=== PATIENT | male | born 1950 | race Caucasian/White ===

== ENCOUNTER 2024-08-14 09:20 | Outpatient (AMB) | payer MEDICARE, SELFPAY ==
--- NOTE | 2024-08-14 09:23 | MHC.OFFVIS ---
Vital Signs 08/14/24 09:25 Height 5 ft 10 in Weight 185 lb BMI 26.5 BP 118/72 Blood Pressure Location Rt brachial Pulse 63 Pulse Source Pulse Oximeter Pulse Oximetry (%) 98 Oxygen Delivery Method Room Air Intake Visit Reasons: ENP-Polyneuropathy Intake Note: patient referred by [facility] for polyneuropathy Allergies shellfish derived (SHELLFISH DERIVED) Allergy (Unknown, Unverified 08/14/24 09:28) DIFF BREATHING Medication List - Last Reconciled 08/14/24 by Jennifer Marques MD lisinopril 10 mg PO DAILY omeprazole 20 mg PO QAM sertraline mg PO DAILY HPI Comments Details: 73y/o male comes for neurological evaluation. In Feb 2024 he had muscle twitches , spasms , mild numbness , jabbing pain intermittently in his UE and LE- for 2 mths - was on cephlexin at that time. He was seen at [facility] - Neuromuscular clinic - EMG showed mild axonal neuropathy and carpal tunnel( mild) .He was asked to stop cephlexin and his symptoms resolved. He alos recieved some steroid injections to his wrist which helpe dhis carpal tunnel. He was referred at that time but he says he is feeling good He also has sleep apnea on CPAP - 7-18 cm used 87/90 days & hrs median daily usage AHI 2.1 Leak- 5L and wants to follow up here. [facility] Medical History (Updated 08/14/24 @ 10:03 by Jennifer Marques MD) Obstructive sleep apnea Rectal cancer Sleep apnea History of paresthesia Polyneuropathy HTN (hypertension) Chronic knee pain Anxiety Surgical History History of rectal surgery Family History Father HTN (hypertension) Social History Alcohol intake: never Patient Tobacco Use Status: Never used Tobacco Physical Exam Vital Signs: Last Vital Signs Pulse 63 08/14/24 09:25 BP 118/72 08/14/24 09:25 Pulse Ox 98 08/14/24 09:25 Oxygen Delivery Method Room Air 08/14/24 09:25 BMI result Body Mass Index 26.5 Const General: cooperative, healthy appearing and comfortable Nutritional Appearance: average body habitus Orientation/consciousness: patient oriented x3 Eyes Pupils: Equal, round and reactive pupils present Neuro General: patient oriented x3, gait normal, tone normal, moves all extremities and no focal motor deficits Cranial nerves: Yes Equal, round and reactive pupils present, Yes Bilaterally intact EOM present, Yes Nystagmus not present, Yes Normal facial strength present, Yes Midline tongue present, Yes Ability to bilaterally rotate head present and Yes Ability to bilaterally elevate shoulders present Cognition (Neuro): normal cognition Gait exam (Neuro): Normal gait present Motor exam (neuro): 5/5 motor strength present throughout and Normal motor muscle tone present throughout Deep tendon reflexes (DTR's): Right triceps reflex intensity grade: 1+, Left triceps reflex intensity grade: 1+, Rt Biceps (C5, C6): 1+, Left biceps reflex intensity grade: 1+, Right brachioradialis reflex intensity grade: 1+, Left brachioradialis reflex intensity grade: 1+, Right patellar reflex intensity grade: 1+, Left patellar reflex intensity grade: 1+, Right ankle reflex intensity grade: 0 and Left ankle reflex intensity grade: 0 Assessment & Plan Assessment & Plan (1) Obstructive sleep apnea: Comment: On CPAP - wants to try INSPIRE- travels a lot and unable to take his CPAP with him Code(s): G47.33 - Obstructive sleep apnea (adult) (pediatric) Category: Medical (2) Polyneuropathy: Comment: reviewed EMG - had labs to r/o reversible causes Code(s): G62.9 - Polyneuropathy, unspecified Category: Medical Plan Home sleep test for reevaluation and to determine if he is a candidate for INSPIRE Monitor neuropathy Orders: Orders RT home sleep study Today G47.30 - Sleep apnea, unspecified Coding Level of Care Code New Pt Level 4 (13260) Diagnoses Obstructive sleep apnea G47.33 Polyneuropathy G62.9
[2024-08-14 09:25] VITALS: BP 118/72; PULSE 63; O2SAT 98; BMI 26.5
--- OUTSIDE RECORDS SUMMARY | 2024-08-14 10:16 | XMS_ITS | Referral Summary ---
Author Organization [facility] Address [address] [place] [address] Care Team Providers Care Gambreler Name Role Phone Renetta Joshi Primary Care Provider [phone] Encounters Date Type Department Care Team Description 06/11/2024 myChart Message [facility] [address] [place] [address] [id number] Kandis Nino MD EMG from Last 3 Months Allergies Active Allergy Reactions Criticality Noted Date Comments Iodinated Contrast Media Rash Low 01/03/2011 UNSPECIFIED Contrast Media - [facility]HS Allergy Remediation Shellfish Containing Products Unknown,Swelling High 07/17/2015 Shellfish Allergy Itchy throat Medications ascorbic acid, vitamin C, (VITAMIN C) 1,000 mg tablet Take 1,000 mg by mouth. Active atenoloL (TENORMIN) 50 mg tablet Take 50 mg by mouth daily. 12/12/2023 Active cholecalciferol (VITAMIN D3) 1,000 unit tablet Take 1,000 Units by mouth daily. Active azithromycin (ZITHROMAX) 250 mg tablet TAKE 2 TABLETS BY MOUTH TODAY, THEN TAKE 1 TABLET DAILY FOR 4 DAYS DIRECTED 05/24/2023 Active ciprofloxacin (CIPRO) 500 mg tablet SMARTSI Tablet(s) By Mouth Twice Daily 01/18/2024 Active lisinopriL (PRINIVIL,ZESTR IL) 20 mg tablet Take 20 mg by mouth daily. 02/28/2024 Active finasteride (PROSCAR) 5 mg tablet SMARTSI Tablet(s) By Mouth Daily 04/15/2024 Active omeprazole (PriLOSEC) 20 mg capsule Take 20 mg by mouth daily. 01/05/2024 Active vitamin B complex capsule Take 1 capsule by mouth once a day. Active sertraline (ZOLOFT) 50 mg tablet Take 50 mg by mouth daily. 03/04/2024 Active Active Problems No known active problems Social History Tobacco Use Types Packs/Day Years Used Date Smoking Tobacco: Never Smokeless Tobacco: Never Tobacco Cessation:Counseling Given: Not Answered Alcohol Use Standard Drinks/Week Comments Not Currently 0 (1 standard drink = 0.6 oz pur e alcohol) Sex and Gender Information Value Date Recorded Sex Assigned at Male 04/10/2024 2:47 PM EST Legal Sex Male 2:47 PM EST Gender Identity Male 04/10/2024 2:47 PM EST Sexual Orientation Straight 04/18/2024 10 :01 AM EST Last Filed Vital Signs Vital Sign Reading Time Taken Comments Blood Pressure 129/69 04/25/2024 1:32 PM EST Pulse 55 04/25/2024 1:32 PM EST Temperature 36.6 C (97.9 F) 04/25/2024 1:17 PM EST Respiratory Rate 18 04/25/2024 1:17 PM EST Oxygen Saturation 99% 04/25/2024 1:17 PM EST Inhaled Oxygen Concentration - - Weight 84.8 kg (187 lb) 04/25/2024 1:17 PM EST Height 177.8 cm (5' 10 ) 04/25/2024 1:17 PM EST Body Mass Index 26.83 04/25/2024 1:17 PM EST Plan of Treatment Upcoming Encounters Date Type Department Care Team (Late st Contact Info) Description 10/10/2024 1:00 PM EDT Office Visit [facility] [address] [place] [id number] Kandis Nino MD [address] [place] [address] [place] [address] Insurance [facility] SUPP MEDICARE Care Teams Gambreler Relationship Specialty Start Date End Date Renetta Joshi [address] [place] [address] PCP - General Internal Medicine 04/17/24
== END 2024-08-14 09:56 | disposition home or self-care (01) ==
LOC: HO.HSMS 09:21
PROVIDERS: PCP Internal Medicine; Visit Provider Psychiatry & Neurology Neurology
DX: G47.33 Obstructive sleep apnea (adult) (pediatric) (principal); G62.9 Polyneuropathy, unspecified
CPT/HCPCS: 99204

== ENCOUNTER → 2024-08-14 09:20 | Outpatient (BNVA) | payer MEDICARE, SELFPAY | PROVIDERS: PCP Internal Medicine; Visit Provider Psychiatry & Neurology Neurology | DX: G47.33 Obstructive sleep apnea (adult) (pediatric) (principal); G62.9 Polyneuropathy, unspecified | CPT/HCPCS: 99202 ==

== ENCOUNTER → 2024-10-29 08:53 | Outpatient (REF) | payer MEDICARE, SELFPAY ==
--- OUTSIDE RECORDS SUMMARY | 2024-10-25 09:10 | XMS_ITS | Encounter Summary ---
Author Organization [facility] Address [address] [place] [address] Care Team Providers Care Machinery Cleaner Name Role Phone Renetta Joshi Primary Care Provider [phone] Reason for Visit * Reason Comments Follow-up Encounter Details Date Type Department Care Team ([facility] st Contact Info) Description 10/25/2024 9:10 AM EDT Office Visit Gastroenterology - [address] [place] [address] Zuleima Lawson PA [address] [place] [address] Bloating (Primary Dx); Flatulence; Chronic idiopathic constipation Social History Tobacco Use Types Packs/Day Years Used Date Smoking Tobacco: Never Smokeless Tobacco: Never Alcohol Use Standard Drinks/Week Comments Yes 0 (1 standard drink = 0.6 oz pur e alcohol) rare Housing Instability Answer Date Recorde d Are you worried that in the next 2 months you may not have stable housing? No 04/16/2024 Food Access & Nutrition Answer Date Rec orded Do you have access to a vari ety of food including fruits and vegetables? Yes 04/16/2024 Access to Healthcare Answer Date Record ed Within the last 3 months, ruben brigth many times did you visit the emergency department for your medical care? 0 04/16/2024 Health Literacy Answer Date Recorded How often do you need to hav e someone help you when you read instructions, pamphlets, or other written material from your doctor or pharmacy? Never 04/16/2024 Caregiver: How often do you need to have someone help you when you read instructions, pamphlets, or other written material from your doctor or pharmacy? Not on file 04/16/2024 Financial Risk Answer Date Recorded How hard is it for you to pa y for the very basics like food, housing, medical care, and air conditioning / heating? Not very hard 04/16/2024 Transportation Answer Date Recorded Has the lack of transportati on kept you from meetings, work, or from getting things needed for daily living? No Has the lack of transportati on kept you from medical appointments or from getting medications? No 04/16/2024 Social Isolation Answer Date Recorded How often do you feel lonely or isolated from th ose around you? Rarely 04/16/2024 Food Risk Answer Date Recorded Within the past 12 months we worried whether our food would run out before we got money to buy more. Never true 04/16/2024 Within the past 12 months th e food we bought just didn't last and we didn't have money to get more. Never true 04/16/2024 Dependent Care Answer Date Recorded Do you need help finding or paying for care for your loved ones. For example, director child or elderly care for an older adult? No 04/16/2024 Education Answer Date Recorded Do you think completing more education or training, like finishing a GED, going to college, or learning a trade, would be helpful for you? No 04/16/2024 Employment and Income Answer Date Recor ded During the last four weeks, have you been actively looking for work? No 04/16/2024 Living Situation Answer Date Recorded What is your living situation? 0 04/16/2024 Sex and Gender Information Value Date Recorded Sex Assigned at Male 03/26/2024 1:49 PM EST Legal Sex Male 2:03 PM EST Gender Identity Male 03/26/2024 1:49 PM EST Sexual Orientation Not on file documented as of this encounter Last Filed Vital Signs Vital Sign Reading Time Taken Comments Blood Pressure - - Pulse - - Temperature - - Respiratory Rate - - Oxygen Saturation - - Inhaled Oxygen Concentration - - Weight 84.4 kg (186 lb) 10/25/2024 9:11 AM EDT Height 177.8 cm (5' 10 ) 10/25/2024 9:11 AM EDT Body Mass Index 26.69 10/25/2024 9:11 AM EDT documented in this encounter Progress Notes * HUANG Foley - 10/25/2024 9:10 AM EDT Subjective Last Colononscopy/EGD: Colon 02/2020 -scar in distal rectum at site of previous transanal fistula closure. Small opening inthe scar. Evidence of prior end-to-side colorectal anastomosis and rectosigmoid colon characterizedby healthy-appearing mucosa. At [facility] (pt called today to arrange next colonoscopy) HPI: Jesse Israel is a 74 y.o. old male who was originally referred to us by Judy Acuña presents to the gastroenterology department today for a follow up of abdominal bloating, constipation and gas. He is actually doing better in general. He is using the simethicone. He did not end up trying the milk of magnesia. He tends to eat prunes regularly. His only complaint today was straining to go to the bathroom. His stool is not hard although he is feels as if he has to strain at times to evacuate. His stool tends to be quite long. He denied alarm symptoms still. He has a cystoscopy planned with the urologist for the ongoing urological symptoms. We reviewed the unremarkable lab work that was ordered after his last appointment. He just placed a call to his field return repairer at [facility] to arrange his next colonoscopy. LABS/IMAGING: Component Ref Range & Units 2 mo ago Vitamin B-12 250 - 900 pcg/mL 587 Folate 2.8 - 17.0 ng/ml >20.0 High Component Ref Range & Units 2 mo ago Tissue Transglutaminase Ab, IgA Quant <4 unit/mL 1 Tissue Transglutaminase Ab, IgA Negative Negative Component Ref Range & Units 2 mo ago Endomysial IgA Negative Negative Resulting Agency SP 1 Result Note 1 Follow-up Encounter Component Ref Range & Units 2 mo ago 6 mo ago IgA 61 - 348 mg/dL 235 234 R Resulting Agency [facility] Review of Systems Constitutional: Negative. Respiratory: Negative. Cardiovascular: Negative. Gastrointestinal: Negative. Difficult time evacuating stool (soft stool) Genitourinary: Negative. 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 Developed fistula. Multiple surgeries/recto-sig colon resection as a result per patient. COLONOSCOPY 02/2020 scar in distal rectum at site of previous transanal fistula closure. Small opening in the scar. Evidence of prior end-to-side colorectal anastomosis and rectosigmoid colon characterized by healthy-appearing mucosa. At [facility] SOCIAL HISTORY: Social History Tobacco Use Smoking status: Never Smokeless tobacco: Never Substance Use Topics Alcohol use: Yes Comment: rare FAMILY HISTORY: No family history on file. ACTIVE MEDICATIONS: Current Outpatient Medications Medication Sig Dispense Refill atenoloL (TENORMIN) 50 mg tablet cholecalciferol (VITAMIN D-3) 25 mcg (1,000 unit) tablet Take 1 tablet (1,000 Units total) by mouthdaily. finasteride (PROSCAR) 5 mg tablet lisinopriL (PRINIVIL,ZESTRIL) 10 mg tablet omeprazole (PriLOSEC) [address] capsule Take 1 capsule (20 mg total) by mouth daily. tadalafiL (CIALIS) 5 mg tablet Take 1 tablet (5 mg total) by mouth 1 (one) time each day. levoFLOXacin (LEVAQUIN) 500 mg tablet Take 1 tablet (500 mg total) by mouth 1 (one) time each day. (Patient not taking: Reported on 10/25/2024) sertraline (ZOLOFT) 50 mg tablet Take 1 tablet (50 mg total) by mouth 1 (one) time each day. zolpidem (AMBIEN) 5 mg tablet No current facility-administered medications for this visit. ALLERGIES: Allergies Allergen Reactions Shellfish Derived Shellfish Allergy Wt Readings from Last 1 Encounters: 10/25/24 0911 84.4 kg (186 lb) Physical Exam Constitutional: Appearance: Normal appearance. HENT: Head: Normocephalic. Skin: General: Skin is warm. Neurological: Mental Status: He is alert and oriented to person, place, and time. Psychiatric: Mood and Affect: Mood normal. Behavior: Behavior normal. IMPRESSION: No diagnosis found. Assessment/Plan Assessment & Plan Bloating Improved Continue simethicone Flatulence Improved Continue simethicone Chronic idiopathic constipation His main issue is evacuation. Stool tends to be soft and long. Suggested that he restart Metamucil 2 capsules daily Also suggested either 1 tablespoon of milk of magnesia at night or MiraLAX a couple of times a week F/u prn HUANG Foley 9:14 AM EDT documented in this encounter Plan of Treatment Not on file documented as of this encounter Visit Diagnoses Diagnosis Bloating- Primary Flatulence, eructation, and gas pain Flatulence Flatulence, eructation, and gas pain Chronic idiopathic constipation Unspecified constipation documented in this encounter Historical Medications * This list may reflect changes made after this encounter. tadalafiL (CIALIS) 5 mg tablet Take 1 tablet (5 mg total) by mouth 1 (one) time each day. 09/17/2024 added in this encounter Additional Health Concerns Assessment Noted Time PHQ-9 Depression Total Score: 1 04/16/19 25 8:06 AM EST documented as of this encounter Care Teams Machinery Cleaner Relationship Specialty Start Date End Date Renetta Joshi PA [address] [place] [address] PCP - General Physician Brick Tester 07/17/24 documented as of this encounter
--- OUTSIDE RECORDS SUMMARY | 2024-10-29 09:41 | XMS_ITS | Clinical Summary ---
Author Organization [address] [facility] Address [address] [place] [address] Phone Care Team Providers Care Air Brake Man Name Role Phone Renetta Joshi Primary Care Provider [phone] Allergies Active Allergy Reactions Criticality Noted Date Comments Shellfish Derived 07/05/2016 Shellfish Allergy Medications atenoloL (TENORMIN) 50 mg tablet 05/27/2015 Active cholecalciferol (VITAMIN D-3) 25 mcg (1,000 unit) tablet Take 1 tablet (1,000 Units total) by mouth daily. Active finasteride (PROSCAR) 5 mg tablet 03/23/2023 Active lisinopriL (PRINIVIL,ZESTR IL) 10 mg tablet Active omeprazole (PriLOSEC) [address] capsule Take 1 capsule (20 mg total) by mouth daily. 06/26/2015 Active sertraline (ZOLOFT) 50 mg tablet Take 1 tablet (50 mg total) by mouth 1 (one) time each day. Active zolpidem (AMBIEN) 5 mg tablet 03/20/2024 Active levoFLOXacin (LEVAQUIN) 500 mg tablet Take 1 tablet (500 mg total) by mouth 1 (one) time each day. 08/04/2024 Active tadalafiL (CIALIS) 5 mg tablet Take 1 tablet (5 mg total) by mouth 1 (one) time each day. 09/17/2024 Active Active Problems Problem Noted Date Diagnosed Date HTN (hypertension) 08/15/2024 BPH (benign prostatic hyperplasia) 08/15/2024 GABY (obstructive sleep apnea) 08/15/2024 Somatic dysfunction of pelvic region 02/02/2017 Sprain of sacroiliac ligament 02/02/2017 Strain of hip 02/02/2017 Encounters Date Type Department Care Team Description 10/25/2024 9:10 AM EDT Office Visit Gastroenterology - [address] [place] [phone] Zuleima Lawson PA Bloating (Primary Dx); Flatulence; Chronic idiopathic constipation 08/22/2024 Telephone Gastroenterology - [address] [place] [phone] Lisa Vides [place] 08/15/2024 8:50 AM EDT Consult Gastroenterology - [address] [place] [phone] Zuleima Lawson PA Bloating (Primary Dx); Flatulence; Chronic idiopathic constipation 08/05/2024 Lab Requisition [facility] - Main Lab [address] [facility] [place] [phone] Jean Matthews MD Urinary tract infection, site not specified from Last 3 Months Surgical History Surgery Date Site/Laterality Comments COLONOSCOPY 02/28/2020 - 03/29/2020 scar in distal rectum at site of previous transanal fistula closure. Small opening in the scar. Evidence of prior end-to-side colorectal anastomosis and rectosigmoid colon characterized by healthy-appearing mucosa. At [facility] COLON SURGERY History of rectal carcinoid resected. Developed fistula. Multiple surgeries/recto-sig colon resection as a result per patient. 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 For example, early childhood teacher or elderly care for an older adult? [...] PM EST Sexual Orientation Not on file Obstetrics History Last Filed Vital Signs Vital Sign Reading Time Taken Comments Blood Pressure 167/82 03/29/2024 12:17 PM EST Pulse 82 03/29/2024 12:17 PM EST Temperature 36.2 C (97.1 F) 03/29/2024 12:17 PM EST Respiratory Rate - - Oxygen Saturation 98% 03/29/2024 12:17 PM EST Inhaled Oxygen Concentration - - Weight 84.4 kg (186 lb) 10/25/2024 9:11 AM EDT Height 177.8 cm (5' 10 ) 10/25/2024 9:11 AM EDT Body Mass Index 26.69 10/25/2024 9:11 AM EDT Plan of Treatment Health Maintenance Due Date Last Done Comments RSV Immunization Adult Patients (1 - Risk 60-74 years 1-dose series) 2012 Zoster Vaccines (3 of 3) 11/08/2016 017, 06/23/2016, 07/24/2014 Pneumococcal Vaccine: 50+ Years (3 of 3 - PCV20 or PCV21) 10/06/2023 10/05/2018, 10/02/2017 COVID-19 Vaccine (4 - 2023-2 5 season) 2023 02/18/2021, 06/09/2020, 05/19/2020 Cholesterol Screening (Lipid Panel) 03/25/2024 Falls Risk Assessment 03/25/2024 Hepatitis C Screening 03/25/2024 Medicare Annual Wellness Visit 03/25/2024 Hypertension/CHF/CAD Annual BMP Blood Test 03/29/2024 03/09/2023 Influenza Vaccine (#1) 2024 , 02/02/2023, 12/23/2011 Social Influencers of Health Screening 04/16/2025 04/16/2024 DTaP,Tdap,and Td Vaccines (2 - Td or Tdap) 09/13/2026 09/13/2016 Colorectal Cancer Screening: Colonoscopy 09/02/2034 09/02/2024 Hepatitis A Vaccines Aged Out 02/15/2017, 07/20/2016 No longer eligible based on patient's age to complete this topic Depression Screening Completed 04/16/2024 HIB Vaccines Aged Out No longer eligi ble based on patient's age to complete this topic HPV Vaccines Aged Out No longer eligi ble based on patient's age to complete this topic Hepatitis B Vaccines Aged Out No long er eligible based on patient's age to complete this topic IPV Vaccines Aged Out No longer eligi ble based on patient's age to complete this topic MMR Vaccines Aged Out No longer eligi ble based on patient's age to complete this topic Meningococcal ACWY Vaccine Aged Out N o longer eligible based on patient's age to complete this topic Meningococcal B Vaccine Aged Out No l onger eligible based on patient's age to complete this topic RSV Immunization Patients Under 20 months Aged Out No longer eligible b ased on patient's age to complete this topic Varicella Vaccines Aged Out No longer eligible based on patient's age to complete this topic Procedures Procedure Name Priority Date/Time Associated Diagnosis Comments COLONOSCOPY Routine 09/02/2024 2:50 PM EDT VITAMIN B12 AND FOLATE Routine 9:35 AM EDT Bloating Flatulence IMMUNOGLOBULIN IGA Routine 08/15/2024 9: 35 AM EDT Bloating Flatulence ENDOMYSIAL ANTIBODY, IGA Routine 08/15/2024 9:35 AM EDT Bloating Flatulence TISSUE TRANSGLUTAMINASE, IGA Routine 08/15/2024 9:35 AM EDT Bloating Flatulence CULTURE URINE Routine 08/05/2024 2:45 PM EDT Urinary tract infection, site not specified from Last 3 Months Results * COLONOSCOPY (09/02/2024 2:50 PM EDT) Anatomical Region Laterality Modality Endoscopy us Historical Provider GI~PROCEDURE ORDERABLES F inal Result * (ABNORMAL) Vitamin B12 and folate (08/15/2024 9:35 AM EDT) Vitamin B-12 587 250 - 900 pcg/mL LAB CHEMISTRY METHOD 08/15/2024 11:17 AM EDT [facility] Folate >20.0(H) 2.8 - 17.0 ng/ml LAB CHEMISTRY METHOD 08/15/2024 11:17 AM EDT [facility] Blood Venous blood specimen / Unknown Venipuncture / Unknown 08/15/2024 9:35 AM EDT 08/15/2024 9:53 AM EDT us Zuleima ENCINAS LAB BLOOD ORDERABLES Final R esult [facility] [address] [place] [address], [place] [phone] * Endomysial antibody, IgA (08/15/2024 9:35 AM EDT) Endomysial IgA Negative Negative 08/16/2024 12:30 PM EDT [facility] Blood Venous blood specimen / Unknown Venipuncture / Unknown 08/15/2024 9:35 AM EDT 08/15/2024 9:53 AM EDT us Zuleima ENCINAS LAB BLOOD ORDERABLES Final R esult [facility] [address] [place] [address], [place] [phone] * Tissue transglutaminase, IgA (08/15/2024 9:35 AM EDT) Tissue Transglutaminase Ab, IgA Quant 1 <4 unit/mL LAB CHEMISTRY METHOD 08/21/2024 11:57 AM EDT [facility] Tissue Transglutaminase Ab, IgA Negative Negative LAB CHEMISTRY METHOD 08/21/2024 11:57 AM EDT [facility] Blood Venous blood specimen / Unknown Venipuncture / Unknown 08/15/2024 9:35 AM EDT 08/15/2024 9:53 AM EDT us Zuleima ENCINAS LAB BLOOD ORDERABLES Final R esult Performing Organization Address [facility]/ZIP Co de Phone Number [facility] [address] [place] [address], * Immunoglobulin IgA (08/15/2024 9:35 AM EDT) Pathologist [facility] IgA 235 61 - 348 mg/dL LAB CHEMISTRY METHOD 08/15/2024 10:33 AM EDT [facility] Blood Venous blood specimen / Unknown Venipuncture / Unknown 08/15/2024 9:35 AM EDT 08/15/2024 9:53 AM EDT Zuleima ENCINAS LAB BLOOD ORDERABLES Final R esult Performing Organization Address [facility] Co de Phone Number [facility] [address] [place] [address], * Culture urine (08/05/2024 2:45 PM EDT) [facility] Culture, Urine <10,000 CFU/mL gram negative bacilli, insignificant count, no further workup 08/06/2024 2:18 PM EDT [facility] Urine Urine specimen obtained by clean catch procedure / Unknown 08/05/2024 2:45 PM EDT 08/05/2024 6:01 PM EDT Jean Matthews MD LAB MICROBIOLOGY - GENERA L ORDERABLES Final Result Performing Organization Address [facility]/ZIP Co de Phone Number [facility] [address] [place] [address], from Last 3 Months Insurance MEDICARE [facility] Care Teams Air Brake Man Relationship Specialty Start Date End Date Renetta Joshi PA [address] [place] [address] PCP - General Physician Rag Sorter 07/17/24
--- OUTSIDE RECORDS SUMMARY | 2024-10-29 09:41 | XMS_ITS | Encounter Summary ---
Author Organization [facility] Address [address] [facility] [address] [place] [address] Phone Care Team Providers Care Journeyman Plumber Name Role Phone Stephane May MD Primary Care Provider [phone] Renetta Joshi Primary Care Provider [phone] Encounter Details Date Type Department Care Team (Late st Contact Info) Description 03/18/2020 Procedure Pass [address] [address] Social History Tobacco Use Types Packs/Day Years Used Date Smoking Tobacco: Never Smokeless Tobacco: Never Alcohol Use Standard Drinks/Week Comments Yes 5 (1 standard drink = 0.6 oz pur e alcohol) occasional Sex and Gender Information Value Date Recorded Sex Assigned at Male 04/27/2020 7:52 PM EST Legal Sex Male 7:49 PM EST Gender Identity Male 04/27/2020 7:52 PM EST Sexual Orientation Straight 04/27/2020 7: 52 PM EST documented as of this encounter Plan of Treatment Not on file documented as of this encounter Visit Diagnoses Not on filedocumented in this encounter Care Teams Journeyman Plumber Relationship Specialty Start Date End Date Stephane May MD [address] [facility] [address] [place] [address] PCP - General 07/03/14 03/19/24 Renetta Joshi PA [address] [place] [address] PCP - General Physician Government Professor 03/20/24 documented as of this encounter Additional Source Comments The information contained in this document represents components of the legal health record. It is not the complete legal health record.[facility]
--- OUTSIDE RECORDS SUMMARY | 2024-10-29 09:41 | XMS_ITS | Clinical Summary ---
Author Organization [facility] Address [address] [place] [address] Care Team Providers Care Cloth Desizing Range Operator Chief Name Role Phone Stephane May Primary Care Provider [phone] Allergies No known active allergies Medications Omeprazole 20 MG CAPSULE DELAYED RELEASE 1 CAPSULE DAILY Active Atenolol 25 MG Tab 1 TABLET DAILY Active Active Problems No known active problems Social History Tobacco Use Types Packs/Day Years Used Date Smoking Tobacco: Never Sex and Gender Information Value Date Recorded Sex Assigned at Not on file Legal Sex Male 9:18 AM EDT Gender Identity Not on file Sexual Orientation Not on file Last Filed Vital Signs Vital Sign Reading Time Taken Comments Blood Pressure - - Pulse - - Temperature - - Respiratory Rate - - Oxygen Saturation - - Inhaled Oxygen Concentration - - Weight 82.6 kg (182 lb) 12/26/2012 8:45 AM EDT Height 177.8 cm (5' 10 ) 12/26/2012 8:45 AM EDT Body Mass Index 26.11 12/26/2012 8:45 AM EDT Plan of Treatment Health Maintenance Due Date Last Done Comments Hepatitis C Screening 1950 DTaP/Tdap/Td (1 - Tdap) 1970 Pneumococcal 50+ years (1 of 1 - PCV) 2002 Zoster (Shingrix) (1 of 2) 2002 COVID-19 Vaccine ( - 2023-2 5 season) 2024 Influenza (#1) 2024 RSV (1 - 1-dose 75+ series) 10/08/2027 Abdominal Aorta Imaging Discontinued HPV Vaccine (No Doses Required) Completed Hep A Aged Out No longer eligi ble based on patient's age to complete this topic Hep B Aged Out No longer eligi ble based on patient's age to complete this topic Hib Aged Out No longer eligi ble based on patient's age to complete this topic Meningococcal ACWY Aged Out No longer eligible based on patient's age to complete this topic Zoster (Zostavax) Discontinued Insurance [facility] FEE FOR SERVICE HMO Care Teams Cloth Desizing Range Operator Chief Relationship Specialty Start Date End Date Stephane May [address] [facility] [address] [place] [address] PCP - General Internal Medicine 12/17/12
--- OUTSIDE RECORDS SUMMARY | 2024-10-29 09:41 | XMS_ITS | Encounter Summary ---
Author Organization [facility] Address [address] [place] [address] Care Team Providers Care Spike Machine Operator Name Role Phone Renetta Joshi Primary Care Provider [phone] Encounter Details Date Type Department Care Team (Late st Contact Info) Description 08/05/2024 Lab Requisition [facility] - Main Lab [address] [facility] [place] [address] Jean Matthews MD [address] [facility] [address] [place] [phone] Urinary tract infection, site not specified Social History Tobacco Use Types Packs/Day Years Used Date Smoking Tobacco: Never Assessed Housing Instability Answer Date Recorde d Are [...] care for your loved ones. For example, child and adolescent psychiatrist or elderly care for an older adult? [...] on file documented as of this encounter Plan of Treatment Not on file documented as of this encounter Procedures Procedure Name Priority Date/Time Associated Diagnosis Comments CULTURE URINE Routine 08/05/2024 2:45 PM EDT Urinary tract infection, site not specified documented in this encounter Results * Culture urine (08/05/2024 2:45 PM EDT) Culture, Urine <10,000 CFU/mL gram negative bacilli, insignificant count, no further workup 08/06/2024 2:[address] [facility] Urine Urine specimen obtained by clean catch procedure / Unknown 08/05/2024 2:45 PM EDT 08/05/2024 6:01 PM EDT us Jean Matthews MD LAB MICROBIOLOGY - GENERA L ORDERABLES Final Result [facility] [address] [place] [address], documented in this encounter Visit Diagnoses Diagnosis Urinary tract infection, site not specified documented in this encounter Additional Health Concerns Assessment Noted Time PHQ-9 Depression Total Score: 1 04/16/19 25 8:06 AM EST documented as of this encounter Care Teams Spike Machine Operator Relationship Specialty Start Date End Date Renetta Joshi PA [address] [place] [address] PCP - General Physician Bale Stacker 07/17/24 documented as of this encounter
--- OUTSIDE RECORDS SUMMARY | 2024-10-29 09:41 | XMS_ITS ---
Author Name [facility] Organization Unknown Results Test Name/Text Value Interpretation Date Range Source Interpretation SerPl GUERO-Imp Normal 03/06/2024 [facility] Albumin SerPl Elph-mCnc 4.9 g/dL Above high normal 03/06/19 25 3.8 - 4.8 [facility] Prot Pattern SerPl Elph-Imp Normal 03/06/2024 [facility] Beta2 Glob SerPl Elph-mCnc 0.3 g/dL Normal 03/06/2024 0. 2 - 0.5 [facility] Beta1 Glob SerPl Elph-mCnc 0.5 g/dL Normal 03/06/2024 0. 4 - 0.6 [facility] Prot SerPl-mCnc 7.7 g/dL Normal 03/06/2024 6.1 - 8.[address] [facility] Gamma glob SerPl Elph-mCnc 1.3 g/dL Normal 03/06/2024 0. 8 - 1.7 [facility] Alpha1 Glob SerPl Elph-mCnc 0.2 g/dL Normal 03/06/2024 0.2 - 0.3 [facility] Alpha2 Glob SerPl Elph-mCnc 0.5 g/dL Normal 03/06/2024 0.5 - 0.9 [facility] Folate SerPl-mCnc 23.9 ng/mL Normal 03/06/2024 [facility] Vit B12 SerPl-mCnc 317.0 pg/mL Normal 03/06/2024 200 - 11 00 [facility] History of Medication Use Medication Directions Dispensed Refills Start Date End Date Stat us finasteride (PROSCAR) 5 MG tablet Take 1 tablet (5 mg total) by mouth daily. 03/23/2023 active lisinopril (PRINIVIL,ZeSTRIL) 10 MG tablet Take 1 tablet (10 mg total) by mouth daily. 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 ProblemAct [facility] Paresthesias active 2023-03-09 ProblemAct [facility] Immunizations Vaccine Date Source Lot Number Status Hepatitis A 02/15/2017 [facility] [id number] completed Hepatitis A 07/20/2016 [facility] [id number] completed Typhoid Inactivated 07/20/2016 [facility] [id number] compl eted Yellow Fever 07/20/2016 [facility] [id number] completed Encounters Encounter Type Encounter Reason Primary Diagnosis Location Date Ambulatory Unspecified abdominal pain Unspecified abdominal pain [facility] 07/05/2024 Ambulatory Essential (primary) hypertension Essential (primary) hypertension [facility] 04/01/2024 Ambulatory Anxiety disorder, unspecified Anxiety disorder, unspecified [facility] 03/04/2024 Ambulatory Encounter for general adult medical examination without abnormal findings Encounter for general adult medical examination without abnormal findings [facility] 01/22/2024 Ambulatory Dysuria Dysuria [employer] 11/08/2023 Ambulatory Urinary tract infection, site not specified Urinary tract infection, site not specified [facility] 10/11/2023 Ambulatory Headache, unspecified Headache, unspecified [facility] 06/15/2023 Ambulatory Acute sinusitis, unspecified Acute sinusitis, unspecified [facility] 06/01/2023 Ambulatory Essential (primary) hypertension Essential (primary) hypertension [facility] 03/09/2023 Care Team Organization Name Specialty Phone Email Start Date End Da te [facility] KISHORE Primary Care 03/19/2023 [facility] CHNYA NOVAK Primary Care 03/09/2023 08/03/2024 [facility] ALINE NOVAK Primary Care 03/09/2023 03/09/2023 [facility] NO PCP Primary Care 03/09/2023 03/09/2023
--- OUTSIDE RECORDS SUMMARY | 2024-10-29 09:41 | XMS_ITS | Encounter Summary ---
Author Organization [facility] Address [address] [facility] [address] [place] [address] Phone Care Team Providers Care It Coordinator Name Role Phone Stephane May MD Primary Care Provider [phone] Renetta Joshi Primary Care Provider [phone] Encounter Details Date Type Department Care Team (Late st Contact Info) Description 03/10/2020 Procedure Pass [facility] [address] [place] [address] Social History Tobacco Use Types Packs/Day Years [...] on filedocumented in this encounter Care Teams It Coordinator Relationship Specialty Start Date End Date Stephane May MD [address] [place] [address] PCP - General 07/03/14 03/19/24 Renetta Joshi PA [address] [place] [address] PCP - General Physician Chinchilla Machine Operator 03/20/24 documented as of this encounter Additional Source Comments The information contained in this document represents components of the legal health record. It is not the complete legal health record.[facility]
--- OUTSIDE RECORDS SUMMARY | 2024-10-29 09:41 | XMS_ITS | Clinical Summary ---
Author Organization [facility] Address [address] [address] Phone Care Team Providers Care Metallurgist Process Name Role Phone Renetta Joshi Primary Care Provider [phone] Allergies Active Allergy Reactions Criticality Noted Date Comments Iodinated Contrast Media 01/03/2011 UNSPECIFIED Contrast Media - PHS Allergy Remediation Shellfish Containing Products 04/28/2020 Medications atenolol (TENORMIN) 25 MG tablet Take 25 mg by mouth daily. Active pediatric multivit with iron (-DONIS PLUS IRON) Drop Take by mouth daily with breakfast. Active tamsulosin (FLOMAX) 0.4 mg Cp24 Take 0.4 mg by mouth daily. Active omeprazole (PRILOSEC) 10 MG capsule Take 10 mg by mouth daily. Active finasteride (PROPECIA) 1 mg tablet Take 1 mg by mouth daily. Active multivitamin per tablet Take 1 tablet by mouth. Active ascorbic acid, vitamin C, (VITAMIN C) 1000 MG tablet Take 1,000 mg by mouth. 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 (04/19/2014): Urethral fistula Immunizations Immunization Administration Dates Next Due Influenza, Unspecified Formulation 05/24(Deferred: Other),01/04/2011(Deferred: Other) Pneumococcal polysaccharide PPSV23 06/19(Deferred: Other),05/25/2011(Deferred: Other),01/04/2011(Deferred: Patient Decision),06/10/2009(Deferred: Patient Decision),06/08/2009(Deferred: Other - does not meet criteria) Family History Relation Status Comments Brother 1 Alive Brother 2 Alive Father Mother Social History Tobacco Use Types Packs/Day Years Used Date Smoking Tobacco: Never Smokeless Tobacco: Never Alcohol Use Standard Drinks/Week Comments Yes 5 (1 standard drink = 0.6 oz pur e alcohol) occasional Education Answer Date Recorded Are you interested in more education? Not on jose e 06/23/2022 Are you concerned about learning? Not on file 06/23/2022 No 06/23/2022 No 06/23/2022 Digital Access Answer Date Recorded No 07/25/2022 No 07/25/2022 No 07/25/2022 Reliable internet access at home? Not on file 07/25/2022 Device with a working camera? Not on file Sex and Gender Information Value Date Recorded Sex Assigned at Male 04/27/2020 7:52 PM EST Legal Sex Male 7:49 PM EST Gender Identity Male 04/27/2020 7:52 PM EST Sexual Orientation Straight 04/27/2020 7: 52 PM EST Last Filed Vital Signs Vital Sign Reading Time Taken Comments Blood Pressure 144/70 04/28/2020 3:59 PM EST Pulse 65 04/28/2020 3:59 PM EST Temperature 36.5 C (97.7 F) 03/10/2020 1:15 PM EST Respiratory Rate 16 03/10/2020 2:40 PM EST Oxygen Saturation 97% 04/28/2020 3:59 PM EST Inhaled Oxygen Concentration - - Weight 86.2 kg (190 lb) 04/28/2020 3:59 PM EST Height 177.8 cm (5' 10 ) 04/28/2020 3:59 PM EST Body Mass Index 27.26 04/28/2020 3:59 PM EST Plan of Treatment Health Maintenance Due Date Last Done Comments Adult Td,Tdap Booster 1950 LIPID PANEL 1950 DEPRESSION SCREENING 1964 HEPATITIS C SCREENING 1970 COLOGUARD 1997 FIT TEST 1997 FOBT 1997 VIRTUAL COLONOSCOPY 1997 PNEUMOCOCCAL VACCINES (50+ years) (1 of 1 - PCV) 2002 ZOSTER VACCINES (1 of 2) 2002 SIGMOIDOSCOPY 06/05/2017 06/05/2012 COVID-19 VACCINE (3 - 2023-2 5 season) 2023 06/09/2020, 05/19/2020 INFLUENZA VACCINE (#1) 2024 12/23/2011 RSV VACCINE (1 - 1-dose 75+ series) 10/08/2027 COLONOSCOPY 03/10/2030 03/10/2020, 11/08/2016, 10/25/2011 COLORECTAL CANCER SCREENING 03/10/2030 SMOKING STATUS SCREENING (On ce After 26 Yrs) Completed 04/28/2020 HEPATITIS A VACCINES Aged Out No long er eligible based on patient's age to complete this topic HIB VACCINES Aged Out No longer eligi ble based on patient's age to complete this topic MENINGOCOCCAL VACCINES (ACWY) Aged Out No longer eligible based on patient's age to complete this topic MENINGOCOCCAL VACCINES (B) Aged Out N o longer eligible based on patient's age to complete this topic Medical Devices Not on file Procedures Procedure Name Priority Date/Time Associated Diagnosis Comments ENDOSCOPY, COLON 03/10/2020 1:32 PM EST ENDOSCOPY, SIGMOID 06/05/2012 2: 21 PM EDT from Last 3 Months or Most Recently Relevant to Health Maintenance Results * ENDOSCOPY, COLON (03/10/2020 1:32 PM EST) 03/10/2020 1:32 PM EST Narrative Transcriptions Tereso Phillips MD - 03/10/2020 1:32 PM EST 850 Gastroenterology Patient Name: Jesse Jimenez Procedure Date: 03/10/2020 1:32 PM Date of : 1950 Age: 69 Room: 03 Gender: Male Note Status: Finalized Attending MD: Tereso Phillips MD Procedure: Colonoscopy Indications: Rectourethral fistula? Providers: Tereso Phillips MD, ENOC PENA RN Referring MD: TATE SUTTON M.D. (Referring MD) Medicines: Monitored Anesthesia Care Complications: No immediate complications. Procedure: Pre-Anesthesia Assessment: - All questions were answered and informed consent was obtained. - ASA Grade Assessment: II - A patient with mild systemic disease. - Airway Examination: Mallampati Class II (the uvula but not tonsillar pillars visualized). After informed consent was obtained, the scope was passed under direct vision. Throughout the procedure, the patient's blood pressure, pulse, and oxygen saturations were monitored continuously. The Colonoscope was introduced through the anus and advanced to the cecum, identified by appendiceal orifice and ileocecal valve. The colonoscopy was performed without difficulty. The patient tolerated the procedure well. The quality of the bowel preparation was good. Findings: The digital rectal exam findings include scar at site of previous trans anal fistula closure. A 5 mm polyp was found in the cecum. The polyp was sessile. The polyp was removed with a cold biopsy forceps. Resection and retrieval were complete. A scar was found in the distal rectum. There was a small opening in the scar (fistula?). There was evidence of a prior end-to-side colo-rectal anastomosis in the recto-sigmoid colon. This was patent and was characterized by healthy appearing mucosa. The anastomosis was traversed. The exam was otherwise without abnormality. Impression: - Scar at site of previous trans anal fistula closure found on digital rectal exam. - One 5 mm polyp in the cecum, removed with a cold biopsy forceps. Resected and retrieved. - Scar in the distal rectum. Possible fistula opening? - Patent end-to-side colo-rectal anastomosis, characterized by healthy appearing mucosa. - The examination was otherwise normal. Recommendation: - Discharge patient to home (ambulatory). - Perform magnetic resonance imaging (MRI) with gadolinium in 1 month. MD Tereso Leong MD 03/10/2020 2:24:19 PM This report has been signed electronically. Number of Addenda: 0 Note Initiated On: 03/10/2020 1:32 PM Tate Sutton MD GI PROCEDURE ORDERABLES Final R esult * ENDOSCOPY, SIGMOID (06/05/2012 2:21 PM EDT) 06/05/2012 2:21 PM EDT Narrative 06/09/2012 10:49 AM EDT Report Number: [id number] Report Status: Signed Type: Flexible Sigmoidoscopy Date: 06/05/2012 14:21 [facility] Gastroenterology Patient Name: Jesse Jimenez Procedure Date: 06/05/2012 2:21 PM Date of : 1950 Admit Type: Outpatient Age: 61 Room: 9 Gender: Male Note Status: Finalized Attending MD: Tereso Phillips MD (Prts) Procedure: Flexible Sigmoidoscopy Indications: Diverticula, History of rectouretrhal fistula. Recent history of urinary tract irritation and infection. No pneumaturia or culture positive findings since last repair. Providers: Tereso Phillips MD (Prts), Junie Montes, DICK Referring MD: TATE SUTTON M.D. (Referring MD) Requesting Provider: TATE SUTTON M.D. Medicines: None Complications: No immediate complications. Procedure: After informed consent was obtained, the endoscope was passed under direct vision. Throughout the procedure, the patient's blood pressure, pulse, and oxygen saturations were monitored continuously. The CF-Q160S was introduced through the anus and advanced to the descending colon. The flexible sigmoidoscopy was accomplished without difficulty. The patient tolerated the procedure well. The quality of the bowel preparation was good. Findings: The perianal and digital rectal examinations were normal. There was evidence of a prior end-to-side colo-rectal anastomosis in the recto-sigmoid colon. This was patent. This was characterized by healthy appearing mucosa. A few small-mouthed diverticula were found in the descending colon. There was evidence of a prior surgery in the rectum (transanal RU fistula repair). Scar and a site of dimpling seen. The exam was otherwise without abnormality. Impression: - Patent end-to-side colo-rectal anastomosis. - Diverticulosis in the descending colon. - Surgical anastomosis. - The examination was otherwise normal. Recommendation: - Discharge patient to home (ambulatory). - High fiber diet indefinitely. - Consider treatment for prostatitis and urethritis. MD Tereso Leong MD (Prts) 06/09/2012 10:48 AM This report has been signed electronically. Number of Addenda: 0 Note Initiated On: 06/05/2012 2:21 PM Procedure Note Tereso Phillips MD - 06/05/2012 2:21 PM EDT Report Number: [id number] Report Status:Signed Type: Flexible Sigmoidoscopy Date: 06/05/2012 14:21 [facility] Gastroenterology Patient Name: Jesse Jimenez Procedure Date: 06/05/2012 2:21 PM Date of : 1950 Admit Type: Outpatient Age: 61 Room: 9 Gender: Male Note Status: Finalized Attending MD: Tereso Bain)MD Procedure: Flexible Sigmoidoscopy Indications: Diverticula, History of rectouretrhal fistula. Recent history of urinary tract irritation and infection. No pneumaturia or culture positive findings since last repair. Providers: Tereso Phillips MD (Prts), Junie Montes RN Referring MD: TATE SUTTON M.D. (Referring MD) Requesting Provider: TATE SUTTON M.D. Medicines: None Complications: No immediate complications. Procedure: After informed consent was obtained, the endoscope was passed under direct vision. Throughout the procedure, the patient's blood pressure, pulse, and oxygen saturations were monitored continuously. The CF-Q160S was introduced through the anus and advanced to the descending colon. The flexible sigmoidoscopy was accomplished without difficulty. The patient tolerated the procedure well. The quality of the bowel preparation was good. Findings: The perianal and digital rectal examinations were normal. There was evidence of a prior end-to-side colo-rectal anastomosis in the recto-sigmoid colon. This was patent. This was characterized by healthy appearing mucosa. A few small-mouthed diverticula were found in the descending colon. There was evidence of a prior surgery in the rectum (transanal RU fistula repair). Scar and a site of dimpling seen. The exam was otherwise without abnormality. Impression: - Patent end-to-side colo-rectal anastomosis. - Diverticulosis in the descending colon. - Surgical anastomosis. - The examination was otherwise normal. Recommendation: - Discharge patient to home (ambulatory). - High fiber diet indefinitely. - Consider treatment for prostatitis and urethritis. MD Tereso Leong MD (Prts) 06/09/2012 10:48 AM This report has been signed electronically. Number of Addenda: 0 Note Initiated On: 06/05/2012 2:21 PM us Conversion Provider Not In Sys GI PROCEDURE ORDE AMBROSE Final Result from Last 3 Months or Most Recently Relevant to Health Maintenance Insurance RELEASEIF MEDEX SUPPLEMENT MEDICARE PART A & B RELEASEIF MEDEX SUPPLEMENT MEDICARE PART A & B RELEASEIF MEDEX SUPPLEMENT MEDICARE PART A & B RELEASEIF MEDEX SUPPLEMENT MEDICARE PART A & B RELEASEIF MEDEX SUPPLEMENT MEDICARE PART A & B BLUE CROSS MEDEX SUPPLEMENT MEDICARE PART A & B RELEASEIF MEDEX SUPPLEMENT MEDICARE PART A & B BLUE CROSS MEDEX SUPPLEMENT MEDICARE PART A & B BLUE CROSS MEDEX SUPPLEMENT MEDICARE PART A & B Care Teams Metallurgist Process Relationship Specialty Start Date End Date Renetta Joshi PA [address] [place] [address] PCP - General Physician Knife Cutter 03/20/24 Additional Source Comments The information contained in this document represents components of the legal health record. It is not the complete legal health record.[facility]
--- OUTSIDE RECORDS SUMMARY | 2024-10-29 09:41 | XMS_ITS | Patient Health Record ---
Author Organization [facility] Address [address] [place] [address] Support Name Relationship Address Phone Jesse Israel Guarantor Unknown [phone] Reason For Referral No Information Plan Of Treatment No Information Insurance Providers Payer Name Payer Address Payer Phone Subscriber Number Group Number Insured Name Patient Relationship to Insured Coverage Start Date Coverage End Date Medicare of [place] - J [address] [place] [id number] [phone] [id number] Jesse Israel Self - patient is the insured [place] Manuel Olvera [address] [place] [address] [id number] Jesse Israel Self - patient is the insured
--- OUTSIDE RECORDS SUMMARY | 2024-10-29 09:41 | XMS_ITS | Encounter Summary ---
Author Organization [facility] Address [address] [facility] [address] [place] [address] Phone Care Team Providers Care Denture Model Maker Name Role Phone Stephane May MD Primary Care Provider [phone] Renetta Joshi Primary Care Provider [phone] Encounter Details Date Type Department Care Team (Late st Contact Info) Description 11/08/2016 Procedure Pass [facility] Endoscopy Department [address] [place] [id number] Social History Tobacco Use Types Packs/Day Years Used Date Smoking Tobacco: Never Smokeless Tobacco: Never Alcohol Use Standard Drinks/Week Comments No 0 (1 standard drink = 0.6 oz [...] on filedocumented in this encounter Care Teams Denture Model Maker Relationship Specialty Start Date End Date Stephane May MD [address] [facility] [address] [place] [address] PCP - General 07/03/14 03/19/24 Renetta Joshi PA [address] [place] [address] PCP - General Physician Feller Seam Operator 03/20/24 documented as of this encounter Additional Source Comments The information contained in this document represents components of the legal health record. It is not the complete legal health record.[facility]
--- OUTSIDE RECORDS SUMMARY | 2024-10-29 09:41 | XMS_ITS | Clinical Summary ---
Author Organization [facility] Address [address] [place] [address] Care Team Providers Care Medical Supply Technician Name Role Phone Renetta Joshi Primary Care Provider [phone] Allergies Active Allergy Reactions Criticality Noted Date Comments Iodinated Contrast Media Rash Low 01/03/2011 UNSPECIFIED Contrast Media - PHS Allergy Remediation Shellfish Containing Products Unknown,Swelling High 07/17/2015 Shellfish Allergy Itchy throat Medications ascorbic acid, vitamin C, (VITAMIN C) 1,000 mg tablet Take 1,000 mg by mouth. Active atenoloL (TENORMIN) 50 mg tablet Take 50 mg by mouth daily. 4 Active cholecalciferol (VITAMIN D3) 1,000 unit tablet Take 1,000 Units by mouth daily. Active lisinopriL (PRINIVIL,ZESTR IL) 20 mg tablet Take 20 mg by mouth daily. 5 Active finasteride (PROSCAR) 5 mg tablet SMARTSI Tablet(s) By Mouth Daily 5 Active omeprazole (PriLOSEC) 20 mg capsule Take 20 mg by mouth daily. 4 Active vitamin B complex capsule Take 1 capsule by mouth once a day. Active azithromycin (ZITHROMAX) 250 mg tablet TAKE 2 TABLETS BY MOUTH TODAY, THEN TAKE 1 TABLET DAILY FOR 4 DAYS DIRECTED 4 10/11/19 25 Discontinu ed(Don't Send CancelRx) ciprofloxacin (CIPRO) 500 mg tablet SMARTSI Tablet(s) By Mouth Twice Daily 4 10/11/19 25 Discontinu ed(Don't Send CancelRx) sertraline (ZOLOFT) 50 mg tablet Take 50 mg by mouth daily. 10/11/19 25 Discontinu ed(Don't Send CancelRx) Active Problems No known active problems Encounters Date Type Department Care Team Description 10/10/2024 1:00 PM EDT Office Visit [facility] [address] [place] [id number] Kandis Nino MD Muscle cramps (Primary Dx) from Last 3 Months Social History Tobacco Use Types Packs/Day Years [...] Sign Reading Time Taken Comments Blood Pressure 130/71 10/10/2024 12:43 PM EDT Pulse 54 10/10/2024 12:43 PM EDT Temperature 36.6 C (97.8 F) 10/10/2024 12:43 PM EDT Respiratory Rate 16 10/10/2024 12:43 PM EDT Oxygen Saturation 99% 04/25/2024 1:17 PM EST Inhaled Oxygen Concentration - - Weight 83.9 kg (185 lb) 10/10/2024 12:43 PM EDT Height 177.8 cm (5' 10 ) 10/10/2024 12:43 PM EDT Body Mass Index 26.54 10/10/2024 12:43 PM EDT Plan of Treatment Health Maintenance Due Date Last Done Comments Cologuard 1950 Hepatitis C Screening 1950 Sigmoidoscopy 1950 Medicare AWV 1951 Zoster Vaccines (3 of 3) 11/08/2016 017, 07/24/2014 Pneumococcal Vaccine: 50+ Years (3 of 3 - PCV20 or PCV21) 10/06/2023 10/05/2018, 10/02/2017 COVID-19 Vaccine (1 - 2023-2 5 season) 2023 Alcohol/Substance Use Screening 02/28/2024 Depression Screening and Follow-Up 02/28/2024 Health Care Proxy Review 02/28/2024 Social Drivers of Health Annual Screening 02/28/2024 Influenza Vaccine (#1) 2024 01/22/2024 FOBT / Fit Test 03/29/2025 03/29/2024 DTaP,Tdap,and Td Vaccines (2 - Td or Tdap) 09/13/2026 09/13/2016 RSV Vaccine (60+ years old a nd patients) (1 - 1-dose 75+ series) 10/08/2027 Colon Cancer Screening 03/10/2030 Colonoscopy 03/10/2030 03/10/2020 Hepatitis B Vaccines Aged Out No long er eligible based on patient's age to complete this topic Insurance [facility] MEDICARE Care Teams Medical Supply Technician Relationship Specialty Start Date End Date Renetta Joshi [address] [place] [address] PCP - General Internal Medicine 04/17/24
== END ==
LOC: HO.SL 08:53
PROVIDERS: PCP Physician Assistant Medical; Visit Provider Psychiatry & Neurology Neurology
DX: G47.33 Obstructive sleep apnea (adult) (pediatric) (principal); G47.30 Sleep apnea, unspecified
CPT/HCPCS: 95806

== ENCOUNTER → 2024-10-29 09:07 | Outpatient (BNV) | payer MEDICARE, SELFPAY | PROVIDERS: PCP Physician Assistant Medical; Visit Provider Psychiatry & Neurology Neurology | DX: G47.33 Obstructive sleep apnea (adult) (pediatric) (principal) | CPT/HCPCS: 95806 ==

== ENCOUNTER 2025-02-12 08:53 | Outpatient (AMB) | payer MEDICARE, SELFPAY ==
--- NOTE | 2025-02-12 08:55 | A.OFFVIS_ITS ---
Vital Signs 02/12/25 08:56 Height 5 ft 10 in Weight 193 lb 6 oz BMI 27.7 BP 122/74 Blood Pressure Location Rt brachial Position Sitting Pulse 66 Pulse Source Pulse Oximeter Pulse Oximetry (%) 96 Oxygen Delivery Method Room Air Intake Visit Reasons: 6mon follow-up Intake Note: Follow up Polyneuropathy and GABY, Sleep studies Oct 2024 Mangle Operator Garments Required: No Accompanied by: Self / Same As Patient Allergies shellfish derived (SHELLFISH DERIVED) Allergy (Unknown, Verified 02/12/25 08:56) DIFF BREATHING HPI Comments Details: 74y/o male comes for follow up of GABY. Repeat Home sleep test 10/2024 - AHI 9 supine AHI 27 He also has sleep apnea on CPAP - 7-18 cm used 87/90 days & hrs median daily usage AHI 2.1 Leak- 5L No sensory symptoms . In Feb 2024 he had muscle twitches , spasms , mild numbness , jabbing pain i ntermittently in his UE and LE- for 2 mths - was on cephlexin at that time. He was seen at [facility] - Neuromuscular clinic - EMG showed mild axonal neuropathy and carpal tunnel( mild) .He was asked to stop cephlexin and his symptoms resolved. He also received some steroid injections to his wrist which helped his carpal tunnel. [facility] Medical History (Updated 02/12/25 @ 09:23 by Jennifer Marques MD) Obstructive sleep apnea Rectal cancer Sleep apnea History of paresthesia Polyneuropathy HTN (hypertension) Chronic knee pain Anxiety Surgical History History of rectal surgery Family History Father HTN (hypertension) Social History Alcohol intake: never Patient Tobacco Use Status: Never used Tobacco Physical Exam Vital Signs: Last Vital Signs Pulse 66 02/12/25 08:56 BP 122/74 02/12/25 08:56 Pulse Ox 96 02/12/25 08:56 Oxygen Delivery Method Room Air 02/12/25 08:56 BMI result Body Mass Index 27.7 Assessment & Plan Assessment & Plan (1) Obstructive sleep apnea: Comment: On CPAP - not a candidate for INSPIRE Code(s): G47.33 - Obstructive sleep apnea (adult) (pediatric) Category: Medical (2) Polyneuropathy: Comment: reviewed EMG - had labs to r/o reversible causes Code(s): G62.9 - Polyneuropathy, unspecified Category: Medical Plan CPAP compliance stressed Humidification decreased to 2. Monitor neuropathy Coding Level of Care Code Est Pt Level 4 (10631) Diagnoses Obstructive sleep apnea G47.33 Polyneuropathy G62.9
[2025-02-12 08:56] VITALS: BP 122/74; PULSE 66; O2SAT 96; BMI 27.7
--- OUTSIDE RECORDS SUMMARY | 2025-02-12 09:31 | XMS_ITS | Encounter Summary ---
Author Organization [facility] Address [address] [employer] [facility] [address] [place] [address] Phone Care Team Providers Care Sales And Operations Trainee Name Role Phone Stephane May MD Primary Care Provider [phone] Renetta Joshi PA-C Primary Care Provi richardson Encounter Details Date Type Department Care Team (Late st Contact Info) Description 03/10/2020 Procedure Pass [facility] [address] [place] [address] Social History Tobacco Use Types Packs/Day Years [...] on filedocumented in this encounter Care Teams Sales And Operations Trainee Relationship Specialty Start Date End Date Stephane May MD [address] [facility] [address] [place] [address] PCP - General 07/03/14 03/19/24 Renetta Joshi PA-C [address] [place] [address] PCP - General Physician Pharmacy Salesperson 03/20/24 documented as of this encounter Additional Source Comments The information contained in this document represents components of the legal health record. It is not the complete legal health record.[facility]
--- OUTSIDE RECORDS SUMMARY | 2025-02-12 09:31 | XMS_ITS | Clinical Summary ---
Author Organization [facility] Address [address] [facility] [address] [place] [address] Phone Care Team Providers Care Medical Receptionist Name Role Phone Renetta Joshi PA-C Primary Care Provi richardson Allergies Active Allergy Reactions Criticality Noted Date [...] (1 of 2) 2002 SIGMOIDOSCOPY 06/05/2017 06/05/2012 INFLUENZA VACCINE (#1) 2024 12/23/2011 COVID-19 VACCINE (3 - 2024-2 6 season) 2024 06/09/2020, 05/19/2020 RSV VACCINE (1 - 1-dose 75+ series) [...] 0 Note Initiated On: 03/10/2020 1:32 PM us Tate Sutton MD GI PROCEDURE ORDERABLES Final R esult * ENDOSCOPY, SIGMOID (06/05/2012 2:21 PM EDT) 06/05/2012 2:21 PM EDT Narrative 06/09/2012 10:49 AM EDT Report Number: [id number] Report Status: Signed Type: Flexible Sigmoidoscopy Date: 06/05/2012 14:21 [facility] Gastroenterology Patient Name: Jesse Jimenez Procedure [...] - 06/05/2012 2:21 PM EDT Report Number: [id number] Report Status:Signed Type: Flexible Sigmoidoscopy Date: 06/05/2012 14:21 [facility] Gastroenterology Patient Name: Jesse Jimenez Procedure [...] Conversion Provider Not In Sys GI PROCEDURE SESAR BOGGS Final Result from Last 3 Months or Most Recently Relevant to Health Maintenance Insurance [employer] MEDEX SUPPLEMENT MEDICARE PART A & B [employer] MEDEX SUPPLEMENT MEDICARE PART A & B [employer] MEDEX SUPPLEMENT MEDICARE PART A & B [employer] MEDEX SUPPLEMENT MEDICARE PART A & B [employer] MEDEX SUPPLEMENT MEDICARE PART A & B [employer] MEDEX SUPPLEMENT MEDICARE PART A & B [employer] CROSS MEDEX SUPPLEMENT MEDICARE PART A & B BLUE CROSS MEDEX SUPPLEMENT MEDICARE PART A & B [employer] CROSS MEDEX SUPPLEMENT MEDICARE PART A & B Care Teams Medical Receptionist Relationship Specialty Start Date End Date Renetta Joshi PA-C [address] [place] [address] PCP - General Physician Utility Worker Film Processing 03/20/24 Additional Source Comments The information contained in this document represents components of the legal health record. It is not the complete legal health record.[facility]
--- OUTSIDE RECORDS SUMMARY | 2025-02-12 09:31 | XMS_ITS | Clinical Summary ---
Author Organization [facility] Address [address] [place] [address] Care Team Providers Care Photovoltaic Testing Technician Name Role Phone Renetta Joshi Primary Care Provider [phone] Allergies Active Allergy Reactions Criticality Noted Date [...] capsule by mouth once a day. Active Active Problems No known active problems [...] - PCV20 or PCV21) 10/06/2023 10/05/2018, 10/02/2017 Alcohol/Substance Use Screening 02/28/2024 Depression Screening and Follow-Up 02/28/2024 Health Care Proxy Review 02/28/2024 Social Drivers of Health Annual Screening 02/28/2024 Influenza Vaccine (#1) 2024 01/22/2024 COVID-19 Vaccine (1 - 2024-2 6 season) 2024 FOBT / Fit Test 03/29/2025 03/29/2024 Fall Risk Screening 04/25/2025 04/25/2024 DTaP,Tdap,and Td Vaccines (2 - Td or Tdap) 09/13/2026 09/13/2016 RSV Vaccine (60+ years old a nd patients) (1 - 1-dose 75+ series) 10/08/2027 Colon Cancer Screening 03/10/2030 Colonoscopy 03/10/2030 03/10/2020 Hepatitis B Vaccines Aged Out No long er eligible based on patient's age to complete this topic Insurance [facility] MEDICARE Care Teams Photovoltaic Testing Technician Relationship Specialty Start Date End Date Renetta Joshi [address] [place] [address] PCP - General Internal Medicine 04/17/24
--- OUTSIDE RECORDS SUMMARY | 2025-02-12 09:31 | XMS_ITS | Encounter Summary ---
Author Organization [facility] Address [address] [place] [address] Care Team Providers Care Underwriting Specialist Name Role Phone Renetta Joshi Primary Care Provider [phone] Encounter Details Date Type Department Care Team (Late st Contact Info) Description 08/05/2024 Lab Requisition [facility] Lab [address] [facility] [place] [address] Jean Matthews MD [address] [facility] [address] [place] [phone] Urinary tract infection, site not specified Social [...] care for your loved ones. For example, children's lunchroom supervisor or elderly care for an older adult? [...] Date Recorded What is your living situation? Unrecognized valu e 04/16/2024 Sex and Gender Information Value Date [...] no further workup 08/06/2024 2:18 PM EDT [facility] Urine Urine specimen obtained by clean catch procedure / Unknown 08/05/2024 2:45 PM EDT 08/05/2024 6:01 PM EDT us Jean Matthews MD LAB MICROBIOLOGY - GENERA L ORDERABLES Final Result [facility] [address] [place] [address], documented in this encounter Visit Diagnoses Diagnosis Urinary tract infection, site not specified documented in this encounter Additional Health Concerns Assessment Noted Time PHQ-9 Depression Total Score: 1 04/16/19 25 8:06 AM EST documented as of this encounter Care Teams Underwriting Specialist Relationship Specialty Start Date End Date Renetta Joshi PA [address] [place] [address] PCP - General Physician Cad Application Support Specialist 07/17/24 documented as of this encounter
--- OUTSIDE RECORDS SUMMARY | 2025-02-12 09:31 | XMS_ITS | Clinical Summary ---
Author Organization [facility] Address [address] [place] [address] Care Team Providers Care Quarry Boss Name Role Phone Renetta Joshi PA-C Primary Care Provi richardson Allergies Active Allergy Reactions Criticality Noted Date Comments Iodinated Contrast Media Rash/Dermatitis Low 01/03/2011 UNSPECIFIED Contrast Media - [facility] Allergy Remediation Shellfish Protein-Containing Drug Products Unknown/Patient and Family Unable to Define Medium 03/09/2023 Medications cholecalciferol (CHOLECALCIFERO L) 25 MCG (1000 UT) tablet Take 1 tablet (1,000 Units total) by mouth daily. Active Multiple Vitamin tablet Take 1 tablet by mouth daily. Active atenolol (TENORMIN) 50 MG tabletIndicatio ns:Primary hypertension,Ur ethral fistula TAKE 1 TABLET BY MOUTH EVERY DAY 90 tablet 1 12/31/19 25 Active OMEprazole (PriLOSEC) 20 MG capsuleIndicati ons:Gastroesoph ageal reflux disease, unspecified whether esophagitis present TAKE 1 CAPSULE BY MOUTH EVERY DAY IN THE MORNING BEFORE BREAKFAST 90 capsule 1 01/09/20 25 Active tadalafil (CIALIS) 10 MG tablet Take 1 tablet (10 mg total) by mouth. Active fluticasone (FloNASE) 50 mcg/spray nasal sprayIndication s:PND (post-nasal drip) 2 sprays into each nostril daily. 1 each 3 01/28/20 25 Active lisinopril (PRINIVIL,ZeSTR IL) 20 MG tabletIndicatio ns:Primary hypertension TAKE 1 TABLET BY MOUTH EVERY DAY 90 tablet 3 02/02/20 25 Active finasteride (PROSCAR) 5 MG tabletIndicatio ns:Primary hypertension,Ur ethral fistula Take 1 tablet (5 mg total) by mouth daily. 30 tablet 3 03/23/19 24 025 Discontinued(Me d List Clean-up/Old Med - No E-Cancel/No AVS) lisinopril (PRINIVIL,ZeSTR IL) 20 MG tabletIndicatio ns:Primary hypertension TAKE 1 TABLET BY MOUTH EVERY DAY 90 tablet 1 08/06/19 25 025 Discontinued sertraline (ZOLOFT) 50 MG tabletIndicatio ns:Anxiety TAKE 1 TABLET BY MOUTH EVERY DAY 90 tablet 1 09/10/19 25 025 Discontinued(Me d List Clean-up/Old Med - No E-Cancel/No AVS) predniSONE (DELTASONE) 20 MG tabletIndicatio ns:Irritant contact dermatitis, unspecified trigger 1 tablet p.o. twice daily days. 1 tablet p.o. daily for 5 days. Take with food. 15 tablet 10/23/19 25 025 Discontinued(Me d List Clean-up/Old Med - No E-Cancel/No AVS) Active Problems Problem Noted Date Diagnosed Date IFG (impaired fasting glucose) 01/27/2025 Assessment & Plan (01/27/2025 8:42 AM EST): Last A1c was 5.7. Will follow yearly. Will be done with fasting labs. Hypertriglyceridemia 01/27/2025 Assessment & Plan (01/27/2025 8:42 AM EST): Encouraged diet and exercise. Will check fasting lipid profile. BPH (benign prostatic hyperplasia) 08/15/2024 History of recurrent UTIs 01/22/2024 Benign prostatic hyperplasia with urinary freque ncy 01/22/2024 Assessment & Plan (01/27/2025 8:42 AM EST): Following with urology. Now on Cialis daily. Starting pelvic floor PT shortly. Stable. Has intermittent bouts of urgency and frequency. Chronic prostatitis 01/22/2024 Assessment & Plan (01/27/2025 8:42 AM EST): Following with urology. Now on Cialis daily. Starting pelvic floor PT shortly. Stable. Has intermittent bouts of urgency and frequency. History of malignant carcinoid tumor of rectum 1 03/23/2023 Assessment & Plan (01/27/2025 8:42 AM EST): Resected in 2008 at the [facility]. Complicated by a urethral rectal fistula. Underwent multiple unsuccessful TURPs and fulgurations requiring diverting ileostomy with ultimate takedown in 2011. Follows with colorectal surgeon out in [place]. He has a small sinus track still of the rectum but not a fistula. Due for a screening colonoscopy shortly. Personal history of benign carcinoid tumor 01/21 Primary hypertension 03/09/2023 Assessment & Plan (01/27/2025 8:42 AM EST): Compliant with blood pressure medications. Patient does not check blood pressures at home. Encourage patient to do so. Blood pressure in the office good today. Obstructive sleep apnea 03/09/2023 03/09/19 24 Assessment & Plan (01/27/2025 8:42 AM EST): Compliant with CPAP. Somatic dysfunction of pelvic region 02/02/2017 03/09/2023 Assessment & Plan (01/27/2025 8:42 AM EST): Following with urology. Now on Cialis daily. Starting pelvic floor PT shortly. Stable. Has intermittent bouts of urgency and frequency. 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 03/09/20232024 Overview (03/09/2023): Urethral fistula Encounters Date Type Department Care Team Description 01/27/2025 8:00 AM EST Office Visit [address] [place] [phone] Renetta Joshi PA-C Encounter for annual wellness exam in Medicare patient (Primary Dx); Primary hypertension; Obstructive sleep apnea; Benign prostatic hyperplasia with urinary frequency; Chronic prostatitis; Somatic dysfunction of pelvic region; History of malignant carcinoid tumor of rectum; IFG (impaired fasting glucose); Hypertriglyceridemia ; PND (post-nasal drip); Anxiety 01/17/2025 Scanned Document [facility] [address] [facility] [place] [address] Urology, Scan 12/25/2024 Scanned Document [facility] [address] [facility] [place] [address] Urology, Scan 11/21/2024 Scanned Document [facility] UROLOGY SCAN Urology, Scan from Last 3 Months Immunizations Immunization Administration Dates Next Due Hepatitis A 02/15/2017,07/20/2016 Influenza High-Dose Trivalen t,(FLUZONE HIGH-DOSE), Perservative Free IM 0.5 mL 65 years and older 01/22/2024 Pneumococcal Conjugate 13-Valent 10/05/2018 Pneumococcal Polysaccharide 23-Valent 10/02/2017 Tdap 09/13/2016 Typhoid Inactivated 07/20/2016 Yellow Fever 07/20/2016 Zoster Vaccine Live/Attenuated (Zostavax) 2014 Zoster Vaccine Recombinant (Shingrix) 09/13/2016 Social History Tobacco Use Types Packs/Day Years Used Date Smoking Tobacco: Some Days Cigars Smokeless Tobacco: Never Tobacco Cessation:Ready to Q uit: Not Asked; Counseling Given: Not Answered Alcohol Use Standard Drinks/Week Comments Yes 0 (1 standard drink = 0.6 oz pur e alcohol) [facility] Utilities Answer Date Recorded In the past 12 months has th e electric, gas, oil, or water company threatened to shut off services in your home? No 07/04/2024 Social Connection and Isolation Panel Answer Date Recorded In a typical week, how many times do you talk on the phone with family, friends, or neighbors? More than three times a week 07/04/2024 Frequency of Social Gatherin gs with Friends and Family Not on file 07/04/2024 Attends Jehovah'S Witness Services Not on file 07/04 Active Member of Clubs or Organizations Not on f ile 07/04/2024 Attends Club or Organization Meetings Not on jose e 07/04/2024 Marital Status Not on file 07/04/2024 AUDIT-C Answer Date Recorded Q1: How often do you have a drink containing alc ohol? Never 07/04/2024 Q2: How many drinks containi ng alcohol do you have on a typical day when you are drinking? 1 or 2 07/04/2024 Frequency of Binge Drinking Not on file 09/2024 PHQ-2 Answer Date Recorded PHQ-2 Total Score 0 01/25/2025 Hunger Vital Sign Answer Date Recorded Within the past 12 months, y ou worried that your food would run out before you got the money to buy more. Never true 07/05/19 25 Within the past 12 months, t he food you bought just didn't last and you didn't have money to get more. Never true 07/04/2024 PRAPARE - Transportation Answer Date Re corded In the past 12 months, has l ack of transportation kept you from medical appointments or from getting medications? No 09/2024 In the past 12 months, has l ack of transportation kept you from meetings, work, or from getting things needed for daily living? No 07/04/2024 Housing Stability Vital Sign Answer Franco e Recorded In the last 12 months, was t here a time when you were not able to pay the mortgage or rent on time? No 07/04/2024 In the past 12 months, how m any times have you moved where you were living? 0 07/04/2024 At any time in the past 12 m [facility], were you homeless or living in a detention (including now)? No 07/04/2024 Education Answer Date Recorded What is the highest level of school you have completed or the highest degree you have received? Master's degree (e.g., MA, MS, Griselda, MEd, MUSEUM SECURITY CHIEF, [employer]) 03/02/2024 Sex and Gender Information Value Date Recorded Sex Assigned at Male 05/31/2023 1:40 PM EDT Legal Sex Male 10:12 AM EST Gender Identity Male 05/31/2023 1:40 PM EDT Sexual Orientation Not on file Occupation Industry Job Start Date Job End Date retired Not on file Not on file Not on file Last Filed Vital Signs Vital Sign Reading Time Taken Comments Blood Pressure 128/72 01/27/2025 7:40 AM EST Pulse 54 01/27/2025 7:40 AM EST Temperature 36.2 C (97.2 F) 01/27/2025 7:40 AM EST Respiratory Rate 17 01/27/2025 7:40 AM EST Oxygen Saturation 98% 01/27/2025 7:40 AM EST Inhaled Oxygen Concentration - - Weight 87.5 kg (192 lb 12.8 oz) 01/27/2025 7:40 AM EST Height 177.8 cm (5' 10 ) 01/27/2025 7:40 AM EST Body Mass Index 27.66 01/27/2025 7:40 AM EST Plan of Treatment Upcoming Encounters Date Type Department Care Team (Late st Contact Info) Description 07/30/2025 8:00 AM EDT Office Visit [address] [place] [address] Renetta Joshi PA-C [address] [place] [address] Health Maintenance Due Date Last Done Comments Advance Care Planning 1950 Hepatitis C Virus Screening 1950 Physical 1970 RSV Vaccine 50 years and older and Patients (1 - Risk 50-74 years 1-dose series) 2002 Zoster (Shingles) Vaccine (3 of 3) 11/08/2016 09/13/2016, 07/24/2014 Abdominal Aortic Aneurysm (AAA) Screening 2017 Pneumococcal Vaccines 50+ (3 of 3 - PCV20 or PCV21) 10/06/2023 10/05/2018, 10/02/2017 Influenza Vaccine 09/27/2024 01/22/2024 COVID-19 Vaccine (3 - 2024-2 6 season) 2024 06/09/2020, 05/19/2020 Colonoscopy 03/10/2025 03/10/2020 (Previously Completed) Annual Wellness Visit 01/28/2026 01/27/2025 , 01/22/2024 DTaP/Tdap/Td Vaccines (2 - T d or Tdap) 09/13/2026 09/13/2016 Hepatitis B Vaccines Aged Out No long er eligible based on patient's age to complete this topic Procedures Procedure Name Priority Date/Time Associated Diagnosis Comments ECG 12-LEAD Routine 01/27/2025 8:41 AM EST Encounter for annual wellness exam in Medicare patient Primary hypertension Obstructive sleep apnea URINALYSIS WITH MICROSCOPIC Routine 01/27/2025 Encounter for annual wellness exam in Medicare patient Primary hypertension Obstructive sleep apnea Benign prostatic hyperplasia with urinary frequency Anxiety History of malignant carcinoid tumor of rectum Chronic prostatitis IFG (impaired fasting glucose) Hypertriglyceridemi a TSH REFLEX TO FREE T4 Routine 01/27/2025 Encounter for annual wellness exam in Medicare patient Primary hypertension Obstructive sleep apnea Benign prostatic hyperplasia with urinary frequency Anxiety History of malignant carcinoid tumor of rectum Chronic prostatitis IFG (impaired fasting glucose) Hypertriglyceridemi a PSA Routine 01/27/2025 Encounter for annual wellness exam in Medicare patient Primary hypertension Obstructive sleep apnea Benign prostatic hyperplasia with urinary frequency Anxiety History of malignant carcinoid tumor of rectum Chronic prostatitis IFG (impaired fasting glucose) Hypertriglyceridemi a LIPID PANEL WITH NONHDL Routine 01/27/2025 Encounter for annual wellness exam in Medicare patient Primary hypertension Obstructive sleep apnea Benign prostatic hyperplasia with urinary frequency Anxiety History of malignant carcinoid tumor of rectum Chronic prostatitis IFG (impaired fasting glucose) Hypertriglyceridemi a COMPREHENSIVE METABOLIC PANEL Routine 01/27/2025 Encounter for annual wellness exam in Medicare patient Primary hypertension Obstructive sleep apnea Benign prostatic hyperplasia with urinary frequency Anxiety History of malignant carcinoid tumor of rectum Chronic prostatitis IFG (impaired fasting glucose) Hypertriglyceridemi a COMPLETE BLOOD COUNT, WITH DIFFERENTIAL Routine 01/27/2025 Encounter for annual wellness exam in Medicare patient Primary hypertension Obstructive sleep apnea Benign prostatic hyperplasia with urinary frequency Anxiety History of malignant carcinoid tumor of rectum Chronic prostatitis IFG (impaired fasting glucose) Hypertriglyceridemi a from Last 3 Months Results * ECG 12 lead (01/27/2025 8:41 AM EST) Ventricular rate 51 BPM EKG [facility] Atrial rate [address] [facility] P-R interval 222 ms EKG [facility] QRS duration 84 ms EKG [facility] Q-T interval 448 ms EKG [facility] QTC calculation (Bazett) 412 ms EKG [facility] P axis 30 degrees EKG [facility] R axis 24 degrees EKG [facility] T axis 62 degrees EKG [facility] 01/27/2025 8:41 AM EST Narrative EKG [facility] - 01/27/2025 9:39 AM EST Sinus bradycardia with 1st degree A-V block Otherwise normal ECG No previous ECGs available Confirmed by Renetta Murphy ([id number]) on 01/27/2025 9:39:31 AM Procedure Note Renetta Joshi PA-C - 01/27/2025 Sinus bradycardia with 1st degree A-V block Otherwise normal ECG No previous ECGs available Confirmed by Renetta Murphy ([id number]) on 01/27/2025 9:39:31 AM Renetta Joshi PA-C ECG ORDERABLES Fin al Result EKG [facility] * TSH REFLEX FREE T4 (01/27/2025) TSH, Highly Sensitive 1.750 MIU/L [facility] Blood specimen / Unknown 01/27/2025 Renetta Escobarbandar [facility] LAB BLOOD ORDERABLE S Final Result Performing Organization Address [facility] de Phone Number [facility] * PSA (01/27/2025) Blood specimen / Unknown 01/27/2025 Renetta Mock Madelyn [facility] LAB BLOOD ORDERABLE S Final Result Performing Organization Address [facility] de Phone Number [facility] * Lipid panel with nonHDL (01/27/2025) Blood specimen / Unknown 01/27/2025 Renetta Escobarbandar [facility] LAB BLOOD ORDERABLE S Final Result Performing Organization Address [facility] de Phone Number [facility] * Complete Blood Count, with Differential (01/27/2025) Blood specimen / Unknown 01/27/2025 Renetta Emili [facility] LAB BLOOD ORDERABLE S Final Result Performing Organization Address [facility] de Phone Number [facility] * Urinalysis with Microscopic (01/27/2025) Urine Urine specimen / Unknown 01/27/2025 Renetta Escobarbandar [facility] URINE ORDERABLES Fi nal Result Performing Organization Address [facility] de Phone Number [facility] * Comprehensive Metabolic Panel (01/27/2025) Blood specimen / Unknown 01/27/2025 Renetta Escobarbandar [facility] LAB BLOOD ORDERABLE S Final Result Performing Organization Address [facility] de Phone Number [facility] from Last 3 Months Insurance MEDICARE PART A & B [facility] Care Teams Quarry Boss Relationship Specialty Start Date End Date Renetta Joshi PA-C [address] [place] [address] PCP - General Internal Medicine 03/09/23
--- OUTSIDE RECORDS SUMMARY | 2025-02-12 09:32 | XMS_ITS | Encounter Summary ---
Author Organization [facility] Address [address] [place] [address] Care Team Providers Care Marketing Budget Analyst Name Role Phone Renetta Joshi PA-C Primary Care Provi richardson Encounter Details Date Type Department Care Team (Late st Contact Info) Description 04/08/2024 Scanned Document [facility] [address] [place] [address] Neurology, Scan Social History Tobacco Use Types Packs/Day Years Used Date Smoking Tobacco: Some Days Cigars Smokeless Tobacco: Never Alcohol Use Standard Drinks/Week Comments Yes 0 (1 standard drink = 0.6 oz pur e alcohol) [facility] Utilities Answer Date Recorded In the past 12 months has [employer] electric, gas, oil, or water company threatened to shut off services in your home? No 03/02/2024 Social Connection and Isolation Panel Answer Date Recorded In a typical week, how many times do you talk on the phone with family, friends, or neighbors? More than three times a week 03/02/2024 Frequency of Social Gatherin gs with Friends and Family Not on file 03/02/2024 Attends Judaism Services Not on file 03/02 Active Member of Clubs or Organizations Not on f ile 03/02/2024 Attends Club or Organization Meetings Not on jose e 03/02/2024 Marital Status Not on file 03/02/2024 AUDIT-C Answer Date Recorded Q1: How often do you have a drink containing alc ohol? 2-3 times a week 03/02/2024 Q2: How many drinks containi ng alcohol do you have on a typical day when you are drinking? 1 or 2 03/02/2024 Frequency of Binge Drinking Not on file 05/2024 PHQ-2 Answer Date Recorded PHQ-2 Total Score 0 01/20/2024 Hunger Vital Sign Answer Date Recorded Within the past 12 months, y ou worried that your food would run out before you got the money to buy more. Never true 03/02/19 25 Within the past 12 months, t he food you bought just didn't last and you didn't have money to get more. Never true 03/02/2024 PRAPARE - Transportation Answer Date Re corded In the past 12 months, has l ack of transportation kept you from medical appointments or from getting medications? No 05/2024 In the past 12 months, has l ack of transportation kept you from meetings, work, or from getting things needed for daily living? No 03/02/2024 Housing Stability Vital Sign Answer Franco e Recorded In the last 12 months, was t here a time when you were not able to pay the mortgage or rent on time? No 03/02/2024 Number of Times Moved in the Last Year Not on fi le 03/02/2024 At any time in the past 12 m [facility], were you homeless or living in a alf (including now)? No 03/02/2024 Education Answer Date Recorded What is the highest level of school you have completed or the highest degree you have received? Master's degree (e.g., MA, MS, Griselda, MEd, OCEANOGRAPHER GEOLOGICAL, [employer]) 03/02/2024 Sex and Gender Information Value Date Recorded Sex Assigned at Male 05/31/2023 1:40 PM EDT Legal Sex Male 10:12 AM EST Gender Identity Male 05/31/2023 1:40 PM EDT Sexual Orientation Not on file Occupation Industry Job Start Date Job End Date retired Not on file Not on file Not on file documented as of this encounter Plan of Treatment Upcoming Encounters Date Type Department Care Team (Late st Contact Info) Description 07/30/2025 8:00 AM EDT Office Visit [address] [place] [phone] Renetta Joshi PA-C [address] [place] [address] documented as of this encounter Visit Diagnoses Not on filedocumented in this encounter Care Teams Marketing Budget Analyst Relationship Specialty Start Date End Date Renetta Joshi PA-C [address] [place] [address] PCP - General Internal Medicine 03/09/23 documented as of this encounter
--- OUTSIDE RECORDS SUMMARY | 2025-02-12 09:32 | XMS_ITS | Encounter Summary ---
Author Organization [facility] Address [address] [place] [address] Care Team Providers Care Supervisor Fish Processing Name Role Phone Renetta Joshi PA-C Primary Care Provi richardson Encounter Details Date Type Department Care Team (Late st Contact Info) Description 06/12/2024 Scanned Document [facility] [address] [place] [address] Urology, Scan Social History Tobacco Use Types Packs/Day Years Used Date Smoking Tobacco: Some Days Cigars Smokeless Tobacco: Never Alcohol Use Standard Drinks/Week Comments Yes 0 (1 standard drink = 0.6 oz pur e alcohol) [facility] Utilities Answer Date Recorded In the past 12 months has [employer] electric, gas, oil, or water company threatened to shut off services in your home? No 03/02/2024 Social Connection and Isolation Panel Answer Date Recorded In a typical week, how many times do you talk on the phone with family, friends, or neighbors? More than three times a week 03/02/2024 Frequency of Social Gatherin gs with Friends and Family Not on file 03/02/2024 Attends Congregational Services Not on file 03/02 Active Member [...] any time in the past 12 m [facility], were you homeless or living in a halfway (including now)? No 03/02/2024 Education Answer Date Recorded What is the highest level of school you have completed or the highest degree you have received? Master's degree (e.g., MA, MS, Griselda, MEd, CABLE SPLICING TECHNICIAN, CAITLYN) 03/02/2024 Sex and Gender Information Value [...] Description 07/30/2025 8:00 AM EDT Office Visit [address] [place] [phone] Renetta Joshi PA-C [address] [place] [address] documented as of this encounter Visit Diagnoses Not on filedocumented in this encounter Care Teams Supervisor Fish Processing Relationship Specialty Start Date End Date Renetta Joshi PA-C [address] [place] [place] [address] PCP - General Internal Medicine 03/09/23 documented as of this encounter
--- OUTSIDE RECORDS SUMMARY | 2025-02-12 09:32 | XMS_ITS | Encounter Summary ---
Author Organization [facility] Address [address] [place] [address] Care Team Providers Care Pathology Assistant Name Role Phone Renetta Joshi PA-C Primary Care Provi richardson Encounter Details Date Type Department Care Team (Late st Contact Info) Description 03/28/2024 Scanned Document [facility] [address] [place] [address] Orthopedic Surgery, Scan Social History Tobacco Use Types Packs/Day Years Used Date Smoking Tobacco: Some Days Cigars Smokeless Tobacco: Never Alcohol Use Standard Drinks/Week Comments Yes 0 (1 standard drink = 0.6 oz pur e alcohol) [facility] Utilities Answer Date Recorded In the past 12 months has [employer] electric, gas, oil, or water company threatened to shut off services in your home? No 03/02/2024 Social Connection and Isolation Panel Answer Date Recorded In a typical week, how many times do you talk on the phone with family, friends, or neighbors? More than three times a week 03/02/2024 Frequency of Social Gatherin gs with Friends and Family Not on file 03/02/2024 Attends Episcopal Services Not on file 03/02 Active Member [...] any time in the past 12 m [facility], were you homeless or living in a long-term (including now)? No 03/02/2024 Education Answer Date Recorded What is the highest level of school you have completed or the highest degree you have received? Master's degree (e.g., MA, MS, Griselda, MEd, SPONSORSHIP MANAGER, CAITLYN) 03/02/2024 Sex and Gender Information Value [...] Description 07/30/2025 8:00 AM EDT Office Visit [address] [place] [phone] Renetta Joshi PA-C [address] [place] [address] documented as of this encounter Visit Diagnoses Not on filedocumented in this encounter Care Teams Pathology Assistant Relationship Specialty Start Date End Date Renetta Joshi PA-C [address] [place] [place] [address] PCP - General Internal Medicine 03/09/23 documented as of this encounter
--- OUTSIDE RECORDS SUMMARY | 2025-02-12 09:32 | XMS_ITS | Encounter Summary ---
Author Organization [facility] Address [address] [place] [address] Care Team Providers Care Coat Agent Name Role Phone Renetta Joshi PA-C Primary Care Provi richardson Encounter Details Date Type Department Care Team (Late st Contact Info) Description 06/11/2024 Scanned Document [facility] ORTHO SURGERY SCAN Orthopedic Surgery, Scan Social History Tobacco Use Types Packs/Day Years Used Date Smoking Tobacco: Some Days Cigars Smokeless Tobacco: Never Alcohol Use Standard Drinks/Week Comments Yes 0 (1 standard drink = 0.6 oz pur e alcohol) [facility] Utilities Answer Date Recorded In the past 12 months has [employer] electric, gas, oil, or water company threatened to shut off services in your home? No 03/02/2024 Social Connection and Isolation Panel Answer Date Recorded In a typical week, how many times do you talk on the phone with family, friends, or neighbors? More than three times a week 03/02/2024 Frequency of Social Gatherin gs with Friends and Family Not on file 03/02/2024 Attends Hinduism Services Not on file 03/02 Active Member [...] any time in the past 12 m [facility], were you homeless or living in a residential (including now)? No 03/02/2024 Education Answer Date Recorded What is the highest level of school you have completed or the highest degree you have received? Master's degree (e.g., MA, MS, Griselda, MEd, LADLER, CIATLYN) 03/02/2024 Sex and Gender Information Value Date [...] Description 07/30/2025 8:00 AM EDT Office Visit [address] [place] [phone] Renetta Joshi PA-C [address] [place] [address] documented as of this encounter Visit Diagnoses Not on filedocumented in this encounter Care Teams Coat Agent Relationship Specialty Start Date End Date Renetta Joshi PA-C [address] [place] [address] PCP - General Internal Medicine 03/09/23 documented as of this encounter
--- OUTSIDE RECORDS SUMMARY | 2025-02-12 09:33 | XMS_ITS | Patient Health Record ---
Author Organization [facility] Address [address] [place] [address] Support Name Relationship Address Phone Jesse Israel Guarantor Unknown [phone] Reason For Referral No Information Plan Of Treatment No Information Insurance Providers Payer Name Payer Address Payer Phone Subscriber Number Group Number Insured Name Patient Relationship to Insured Coverage Start Date Coverage End Date Medicare of [place] - J [address] SEVEN [place] [id number] Jesse Israel Self - patient is the insured [place] Manuel Cross Manuel Olvera [address] [place] [address] [id number] Jesse Israel Self - patient is the insured
--- OUTSIDE RECORDS SUMMARY | 2025-02-12 09:33 | XMS_ITS | Encounter Summary ---
Author Organization [facility] Address [address] [place] [address] Care Team Providers Care Net Web Application Developer Name Role Phone Renetta Joshi PA-C Primary Care Provi richardson Encounter Details Date Type Department Care Team (Late st Contact Info) Description 08/12/2024 Scanned Document [facility] UROLOGY SCAN Urology, Scan Social History Tobacco Use Types Packs/Day Years Used Date Smoking Tobacco: Some Days Cigars Smokeless Tobacco: Never Alcohol Use Standard Drinks/Week Comments Yes 0 (1 standard drink = 0.6 oz pur e alcohol) [facility] Utilities Answer Date Recorded In the past 12 months has e electric, gas, oil, or water company [...] and Family Not on file 07/04/2024 Attends Yarsani Services Not on file 07/04 Active Member [...] any time in the past 12 m onths, were you homeless or living in a intermediate (including now)? No 07/04/2024 Education Answer Date Recorded What is the highest level of school you have completed or the highest degree you have received? Master's degree (e.g., MA, MS, Griselda, MEd, COFFEE ROASTER, CAITLYN) 03/02/2024 Sex and Gender Information Value [...] Description 07/30/2025 8:00 AM EDT Office Visit [address] [phone] Renetta Joshi PA-C [address] [place] [address] documented as of this encounter Visit Diagnoses Not on filedocumented in this encounter Care Teams Net Web Application Developer Relationship Specialty Start Date End Date Renetta Joshi PA-C [address] [place] [address] PCP - General Internal Medicine 03/09/23 documented as of this encounter
--- OUTSIDE RECORDS SUMMARY | 2025-02-12 09:33 | XMS_ITS | Encounter Summary ---
Author Organization [facility] Address [address] [facility] [address] [place] [address] Phone Care Team Providers Care Assistant Strength Coach Name Role Phone Stephane May MD Primary Care Provider [phone] Renetta Joshi PA-C Primary Care Provi richardson Encounter Details Date Type Department Care Team (Late st Contact Info) Description 11/08/2016 Procedure Pass [facility] Endoscopy Department [address] [place] [address] Social History Tobacco Use Types Packs/Day Years [...] on filedocumented in this encounter Care Teams Assistant Strength Coach Relationship Specialty Start Date End Date Stephane May MD [address] [facility] [address] [place] [address] PCP - General 07/03/14 03/19/24 Renetta Joshi PA-C [address] [place] [address] PCP - General Physician Kinesiologist 03/20/24 documented as of this encounter Additional Source Comments The information contained in this document represents components of the legal health record. It is not the complete legal health record.[facility]
--- OUTSIDE RECORDS SUMMARY | 2025-02-12 09:34 | XMS_ITS | Encounter Summary ---
Author Organization [facility] Address [address] [place] [address] Care Team Providers Care Offc Spec Name Role Phone Renetta Joshi PA-C Primary Care Provi richardson Encounter Details Date Type Department Care Team (Late st Contact Info) Description 09/19/2024 Scanned Document [facility] [address] [place] [address] Urology, Scan Social History Tobacco Use Types Packs/Day Years Used Date Smoking Tobacco: Some Days Cigars Smokeless Tobacco: Never Alcohol Use Standard Drinks/Week Comments Yes 0 (1 standard drink = 0.6 oz pur e alcohol) [facility] Utilities Answer Date Recorded In the past 12 months has [employer] electric, gas, oil, or water company threatened to shut off services in your home? No 07/04/2024 Social Connection and Isolation Panel Answer Date Recorded In a typical week, how many times do you talk on the phone with family, friends, or neighbors? More than three times a week 07/04/2024 Frequency of Social Gatherin gs with Friends and Family Not on file 07/04/2024 Attends Oriental Orthodox Services Not on file 07/04 Active Member [...] any time in the past 12 m [facility], were you homeless or living in a longterm (including now)? No 07/04/2024 Education Answer Date Recorded What is the highest level of school you have completed or the highest degree you have received? Master's degree (e.g., MA, MS, Griselda, MEd, QUIRK SANDER, CAITLYN) 03/02/2024 Sex and Gender Information Value [...] Description 07/30/2025 8:00 AM EDT Office Visit [address] [phone] Renetta Joshi PA-C [address] [place] [address] documented as of this encounter Visit Diagnoses Not on filedocumented in this encounter Care Teams Offc Spec Relationship Specialty Start Date End Date Renetta Joshi PA-C [address] [place] [address] PCP - General Internal Medicine 03/09/23 documented as of this encounter
--- OUTSIDE RECORDS SUMMARY | 2025-02-12 09:34 | XMS_ITS | Encounter Summary ---
Author Organization [facility] Address [address] [place] [address] Phone Care Team Providers Care Medical Van Driver Name Role Phone Stephane May MD Primary Care Provider [phone] Renetta Joshi PA-C Primary Care Provi richardson Encounter Details Date Type Department Care Team (Late st Contact Info) Description 03/18/2020 Procedure Pass [address] [address] Social History Tobacco Use Types Packs/Day Years [...] on filedocumented in this encounter Care Teams Medical Van Driver Relationship Specialty Start Date End Date Stephane May MD [address] [facility] [address] [place] [address] PCP - General 07/03/14 03/19/24 Renetta Joshi PA-C [address] [place] [address] PCP - General Physician Counter Pocket Trimmer 03/20/24 documented as of this encounter Additional Source Comments The information contained in this document represents components of the legal health record. It is not the complete legal health record.[facility]
--- OUTSIDE RECORDS SUMMARY | 2025-02-12 09:34 | XMS_ITS | Encounter Summary ---
Author Organization [facility] Address [address] [place] [address] Care Team Providers Care Curriculum Developer Name Role Phone Renetta Joshi PA-C Primary Care Provi richardson Encounter Details Date Type Department Care Team (Late Contact Info) Description 01/23/2024 Scanned Document [facility] INTERNAL MED SCAN Renetta Joshi PA-C [address] [place], [place] [phone] Social History Tobacco Use Types Packs/Day Years Used Date Smoking Tobacco: Some Days Cigars Smokeless Tobacco: Never Alcohol Use Standard Drinks/Week Comments Yes 0 (1 standard drink = 0.6 oz pur e alcohol) PHQ-2 Answer Date Recorded PHQ-2 Total Score 0 01/20/2024 Sex and Gender Information Value Date Recorded [...] Encounters Date Type Department Care Team (Late Contact Info) Description 07/30/2025 8:00 AM EDT Office Visit [address] [place] [phone] Renetta Joshi PA-C [address] [place] [address] documented as of this encounter Visit Diagnoses Not on filedocumented in this encounter Care Teams Curriculum Developer Relationship Specialty Start Date End Date Renetta Joshi PA-C [address] [place] [address] PCP - General Internal Medicine 03/09/23 documented as of this encounter
--- OUTSIDE RECORDS SUMMARY | 2025-02-12 09:34 | XMS_ITS | Encounter Summary ---
Author Organization [facility] Address [address] [place] [address] Care Team Providers Care Mattress Maker Name Role Phone Renetta Joshi PA-C Primary Care Provi richardson Encounter Details Date Type Department Care Team (Late Contact Info) Description 01/23/2024 Scanned Document [facility] [address] [place] [address] Urology, Scan Social History Tobacco Use Types [...] Description 07/30/2025 8:00 AM EDT Office Visit [address] [place] [phone] Renetta Joshi PA-C [address] [place] [address] documented as of this encounter Visit Diagnoses Not on filedocumented in this encounter Care Teams Mattress Maker Relationship Specialty Start Date End Date Renetta Joshi PA-C [address] [place] [place] [address] PCP - General Internal Medicine 03/09/23 documented as of this encounter
--- OUTSIDE RECORDS SUMMARY | 2025-02-12 09:34 | XMS_ITS | Encounter Summary ---
Author Organization [facility] Address [address] [place] [address] Care Team Providers Care Fabric Awning Repairer Name Role Phone Renetta Joshi PA-C Primary Care Provi richardson Encounter Details Date Type Department Care Team (Late Contact Info) Description 04/11/2023 Scanned Document [address] [phone] Primary Care, Scan Social History Tobacco Use Types Packs/Day Years Used Date Smoking Tobacco: Some Days Cigars Smokeless Tobacco: Never Alcohol Use Standard Drinks/Week Comments Yes 0 (1 standard drink = 0.6 oz pur e alcohol) PHQ-2 Answer Date Recorded PHQ-2 Total Score 0 03/09/2023 Sex and Gender Information Value Date Recorded [...] Description 07/30/2025 8:00 AM EDT Office Visit [address] [phone] Renetta Joshi PA-C [address] [place] [address] documented as of this encounter Visit Diagnoses Not on filedocumented in this encounter Care Teams Fabric Awning Repairer Relationship Specialty Start Date End Date Renetta Joshi PA-C [address] [place] [address] PCP - General Internal Medicine 03/09/23 documented as of this encounter
--- OUTSIDE RECORDS SUMMARY | 2025-02-12 09:34 | XMS_ITS | Encounter Summary ---
Author Organization [facility] Address [address] [place] [address] Care Team Providers Care Integrated Circuit Layout Designer Name Role Phone Renetta Joshi PA-C Primary Care Provi richardson Encounter Details Date Type Department Care Team (Late st Contact Info) Description 11/21/2024 Scanned Document [facility] UROLOGY SCAN Urology, Scan Social History Tobacco Use Types Packs/Day Years Used Date Smoking Tobacco: Some Days Cigars Smokeless Tobacco: Never Alcohol Use Standard Drinks/Week Comments Yes 0 (1 standard drink = 0.6 oz pur e alcohol) [facility] Utilities Answer Date Recorded In the [...] and Family Not on file 07/04/2024 Attends Lutheran Services Not on file 07/04 Active Member [...] living in a halfway (including now)? No 07/04/2024 Education Answer Date Recorded What is the highest level of school you have completed or the highest degree you have received? Master's degree (e.g., MA, MS, Griselda, MEd, MANAGER GLOBAL, CAITLYN) 03/02/2024 Sex and Gender Information Value [...] Description 07/30/2025 8:00 AM EDT Office Visit [address] [phone] Renetta Joshi PA-C [address] [place] [address] documented as of this encounter Visit Diagnoses Not on filedocumented in this encounter Care Teams Integrated Circuit Layout Designer Relationship Specialty Start Date End Date Renetta Joshi PA-C [address] [place] [address] PCP - General Internal Medicine 03/09/23 documented as of this encounter
--- OUTSIDE RECORDS SUMMARY | 2025-02-12 09:34 | XMS_ITS | Encounter Summary ---
Author Organization [facility] Address [address] [place] [address] Care Team Providers Care Toggle Press Folder And Feeder Name Role Phone Renetta Joshi PA-C Primary Care Provi richardson Encounter Details Date Type Department Care Team (Late Contact Info) Description 02/15/2024 Scanned Document [facility] [address] [place] [address] Urology, Scan Social History Tobacco Use Types [...] Description 07/30/2025 8:00 AM EDT Office Visit [address] [place] [phone] Renetta Joshi PA-C [address] [place] [address] documented as of this encounter Visit Diagnoses Not on filedocumented in this encounter Care Teams Toggle Press Folder And Feeder Relationship Specialty Start Date End Date Renetta Joshi PA-C [address] [place] [address] PCP - General Internal Medicine 03/09/23 documented as of this encounter
--- OUTSIDE RECORDS SUMMARY | 2025-02-12 09:35 | XMS_ITS | Clinical Summary ---
Author Organization [facility] Address [address] [place] [address] Care Team Providers Care Printer'S Devil Name Role Phone Stephane May Primary Care Provider [phone] Allergies No known active allergies Medications Omeprazole [...] of 2) 2002 COVID-19 Vaccine ( - 2024-2 6 season) 2024 Influenza (#1) 2024 RSV (1 [...] complete this topic Zoster (Zostavax) Discontinued Insurance [facility] FEE FOR SERVICE HMO Care Teams Printer'S Devil Relationship Specialty Start Date End Date Stephane May [address] [facility] [address] [place] [address] PCP - General Internal Medicine 12/17/12
--- OUTSIDE RECORDS SUMMARY | 2025-02-12 09:35 | XMS_ITS | Encounter Summary ---
Author Organization [facility] Address [address] [place] [address] Care Team Providers Care Desktop Publishing Operator Name Role Phone Renetta Joshi PA-C Primary Care Provi richardson Encounter Details Date Type Department Care Team (Late st Contact Info) Description 01/17/2025 Scanned Document [facility] [address] [place] [address] Urology, Scan Social History Tobacco Use Types Packs/Day Years Used Date Smoking Tobacco: Some Days Cigars Smokeless Tobacco: Never Alcohol Use Standard Drinks/Week Comments Yes 0 (1 standard drink = 0.6 oz pur e alcohol) [facility] Utilities Answer Date Recorded In the past 12 months has [employer] electric, gas, oil, or water company threatened to shut off services in your home? No 07/04/2024 Social Connection and Isolation Panel Answer Date Recorded In a typical week, how many times do you talk on the phone with family, friends, or neighbors? More than three times a week 07/04/2024 Frequency of Social Gatherin gs with Friends and Family Not on file 07/04/2024 Attends Scientology Services Not on file 07/04 Active Member [...] any time in the past 12 m [facility], were you homeless or living in a prison (including now)? No 07/04/2024 Education Answer Date Recorded What is the highest level of school you have completed or the highest degree you have received? Master's degree (e.g., MA, MS, Griselda, MEd, RADIO MACHINIST, CAITLYN) 03/02/2024 Sex and Gender Information Value [...] 07/30/2025 8:00 AM EDT Office Visit [address] [phone] Renetta Joshi PA-C [address] [place] [address] documented as of this encounter Visit Diagnoses Not on filedocumented in this encounter Care Teams Desktop Publishing Operator Relationship Specialty Start Date End Date Renetta Joshi PA-C [address] [place] [address] PCP - General Internal Medicine 03/09/23 documented as of this encounter
--- OUTSIDE RECORDS SUMMARY | 2025-02-12 09:35 | XMS_ITS | Encounter Summary ---
Author Organization [facility] Address [address] [place] [address] Care Team Providers Care Director Check Name Role Phone Renetta Joshi Primary Care Provider [phone] Encounter Details Date Type Department Care Team (Late st Contact Info) Description 01/13/2025 Lab Requisition [facility] - Main Lab [address] [facility] [place] [phone] Roge Hylton PA [address] [place] [address] Urinary tract infection, site not specified Social [...] for your loved ones. For example, child welfare consultant or elderly care for an older adult? [...] Date/Time Associated Diagnosis Comments CULTURE URINE Routine 01/13/2025 12:00 AM EST Urinary tract infection, site not specified documented in this encounter Results * Culture urine (01/13/2025 12:00 AM EST) Culture, Urine No growth 01/14/2025 10:22 AM EST [facility] Urine Urine specimen obtained by clean catch procedure / Unknown 01/13/2025 01/13/2025 2:33 PM EST us [facility] MICROBIOLOGY - GENERAL O RDERABLES Final Result [facility] [address] [place] [address], documented in this encounter Visit Diagnoses Diagnosis Urinary tract infection, site not specified documented in this encounter Additional Health Concerns Assessment Noted Time PHQ-9 Depression Total Score: 1 04/16/19 8:06 AM EST documented as of this encounter Care Teams Director Check Relationship Specialty Start Date End Date Renetta Joshi PA [address] [place] [address] PCP - General Physician Imaging Technologist 07/17/24 documented as of this encounter
--- OUTSIDE RECORDS SUMMARY | 2025-02-12 09:35 | XMS_ITS | Encounter Summary ---
Author Organization [facility] Address [address] [place] [address] Care Team Providers Care Urgent Care Technician Name Role Phone Renetta Joshi PA-C Primary Care Provi richardson Encounter Details Date Type Department Care Team ([facility] Contact Info) Description 03/13/2023 Scanned Document [facility] Urologic Surgery [address] [place] [phone] Primary Care, Scan Social History Tobacco Use [...] Description 07/30/2025 8:00 AM EDT Office Visit [address] [phone] Renetta Joshi PA-C [address] [place] [address] documented as of this encounter Visit Diagnoses Not on filedocumented in this encounter Care Teams Urgent Care Technician Relationship Specialty Start Date End Date Renetta Joshi PA-C [address] [place] [address] PCP - General Internal Medicine 03/09/23 documented as of this encounter
--- OUTSIDE RECORDS SUMMARY | 2025-02-12 09:35 | XMS_ITS | Encounter Summary ---
Author Organization [facility] Address [address] [place] [address] Care Team Providers Care Cylindrical Mixer Name Role Phone Renetta Joshi PA-C Primary Care Provi richardson Encounter Details Date Type Department Care Team (Late st Contact Info) Description 12/25/2024 Scanned Document [facility] [address] [place] [address] Urology, Scan Social History Tobacco Use Types Packs/Day Years Used Date Smoking Tobacco: Some Days Cigars Smokeless Tobacco: Never Alcohol Use Standard Drinks/Week Comments Yes 0 (1 standard drink = 0.6 oz pur e alcohol) [facility] Utilities Answer Date Recorded In the past 12 months has [employer] electric, gas, oil, or water company threatened to shut off services in your home? No 07/04/2024 Social Connection and Isolation Panel Answer Date Recorded In a typical week, how many times do you talk on the phone with family, friends, or neighbors? More than three times a week 07/04/2024 Frequency of Social Gatherin gs with Friends and Family Not on file 07/04/2024 Attends [employer] Not on file 07/04 Active Member [...] were you homeless or living in a half-way (including now)? No 07/04/2024 Education Answer Date Recorded What is the highest level of school you have completed or the highest degree you have received? Master's degree (e.g., MA, MS, Griselda, MEd, JIG BUILDER HELPER, CAITLYN) 03/02/2024 Sex and Gender Information Value [...] 07/30/2025 8:00 AM EDT Office Visit [address] [phone] Renetta Joshi PA-C [address] [place] [address] documented as of this encounter Visit Diagnoses Not on filedocumented in this encounter Care Teams Cylindrical Mixer Relationship Specialty Start Date End Date Renetta Joshi PA-C [address] [place] [address] PCP - General Internal Medicine 03/09/23 documented as of this encounter
--- OUTSIDE RECORDS SUMMARY | 2025-02-12 09:35 | XMS_ITS | Encounter Summary ---
Author Organization [facility] Address [address] [place] [address] Care Team Providers Care Automatic Typewriter Inspector Name Role Phone Renetta Joshi PA-C Primary Care Provi richardson Encounter Details Date Type Department Care Team ([facility] Contact Info) Description 11/09/2023 Scanned Document [facility] UROLOGY SCAN Urology, Scan Social History Tobacco [...] Description 07/30/2025 8:00 AM EDT Office Visit [address] [phone] Renetta Joshi PA-C [address] [place] [address] documented as of this encounter Visit Diagnoses Not on filedocumented in this encounter Care Teams Automatic Typewriter Inspector Relationship Specialty Start Date End Date Renetta Joshi PA-C [address] [place] [phone] PCP - General Internal Medicine 03/09/23 documented as of this encounter
--- OUTSIDE RECORDS SUMMARY | 2025-02-12 09:35 | XMS_ITS | Encounter Summary ---
Author Organization [facility] Address [address] [place] [address] Care Team Providers Care Rn Corrections Name Role Phone Renetta Joshi PA-C Primary Care Provi richardson Encounter Details Date Type Department Care Team (Late Contact Info) Description 04/11/2023 Scanned Document [address] [phone] Primary Care, Scan Social History Tobacco Use [...] Description 07/30/2025 8:00 AM EDT Office Visit [address] [phone] Renetta Joshi PA-C [address] [place] [address] documented as of this encounter Visit Diagnoses Not on filedocumented in this encounter Care Teams Rn Corrections Relationship Specialty Start Date End Date Renetta Joshi PA-C [address] [place] [address] PCP - General Internal Medicine 03/09/23 documented as of this encounter
--- OUTSIDE RECORDS SUMMARY | 2025-02-12 09:35 | XMS_ITS | Clinical Summary ---
Author Organization [address] [facility] Address [address] [place] [address] Phone Care Team Providers Care Conductor Road Freight Name Role Phone Renetta Joshi Primary Care Provider [phone] Allergies Active Allergy Reactions Criticality Noted Date [...] Encounters Date Type Department Care Team Description 01/13/2025 Lab Requisition [facility] [address] [facility] [place] [address] Roge Hylton PA Urinary tract infection, site not specified from Last 3 Months Surgical History Surgery Date Site/Laterality Comments COLONOSCOPY 02/28/2020 - 03/29/2020 scar in distal rectum at site of previous transanal fistula closure. Small opening in the scar. Evidence of prior end-to-side colorectal anastomosis and rectosigmoid colon characterized by healthy-appearing mucosa. At [facility] COLON SURGERY History of rectal carcinoid resected. [...] ed Within the last 3 months, ruben bright many times did you visit the emergency [...] PM EST Sexual Orientation Not on file Last Filed [...] RSV Immunization Adult Patients (1 - Risk 50-74 years 1-dose series) 2002 Zoster Vaccines (3 of 3) 11/08/2016 017, 06/23/2016, 07/24/2014 Pneumococcal Vaccine: 50+ Years (3 of 3 - PCV20 or PCV21) 10/06/2023 10/05/2018, 10/02/2017 Cholesterol Screening (Lipid Panel) 03/25/2024 Falls Risk Assessment 03/25/2024 Hepatitis C Screening 03/25/2024 Medicare Annual Wellness Visit 03/25/2024 Hypertension/CHF/CAD Annual BMP Blood Test 03/29/2024 03/09/2023 COVID-19 Vaccine (4 - 2024-2 6 season) 2024 02/18/2021, 06/09/2020, 05/19/2020 Influenza Vaccine (#1) 2024 , 02/02/2023, 12/23/2011 [...] EST Urinary tract infection, site not specified COLONOSCOPY Routine 09/02/2024 2:50 PM EDT from Last 3 Months or Most Recently Relevant to Health Maintenance Results * Culture urine (01/13/2025 12:00 AM EST) Culture, Urine No growth 01/14/2025 10:22 AM EST [facility] Urine Urine specimen obtained by clean catch procedure / Unknown 01/13/2025 01/13/2025 2:33 PM EST [facility] MICROBIOLOGY - GENERAL O RDERABLES Final Result [facility] [address] [place] [address], * COLONOSCOPY (09/02/2024 2:50 PM EDT) Anatomical Region Laterality Modality Endoscopy Historical Provider GI~PROCEDURE ORDERABLES F inal Result from Last 3 Months or Most Recently Relevant to Health Maintenance Insurance MEDICARE [facility] Care Teams Conductor Road Freight Relationship Specialty Start Date End Date Renetta Joshi PA [address] [place] [address] PCP - General Physician Currency Counter 07/17/24
--- OUTSIDE RECORDS SUMMARY | 2025-02-12 09:35 | XMS_ITS | Encounter Summary ---
Author Organization [facility] Address [address] [place] [address] Care Team Providers Care Regulatory Scientist Name Role Phone Renetta Joshi PA-C Primary Care Provi richardson Encounter Details Date Type Department Care Team (Late Contact Info) Description 04/11/2023 Scanned Document [address] [phone] Primary Care, Scan Social History Tobacco Use [...] Description 07/30/2025 8:00 AM EDT Office Visit [address] [phone] Renetta Joshi PA-C [address] [place] [address] documented as of this encounter Visit Diagnoses Not on filedocumented in this encounter Care Teams Regulatory Scientist Relationship Specialty Start Date End Date Renetta Joshi PA-C [address] [place] [address] PCP - General Internal Medicine 03/09/23 documented as of this encounter
--- OUTSIDE RECORDS SUMMARY | 2025-02-12 09:35 | XMS_ITS | Encounter Summary ---
Author Organization [facility] Address [address] [place] [address] Care Team Providers Care Nurse Auditor Name Role Phone Renetta Joshi PA-C Primary Care Provi richardson Encounter Details Date Type Department Care Team (Late Contact Info) Description 08/07/2023 Scanned Document [facility] UROLOGY SCAN Urology, Scan Social History [...] 07/30/2025 8:00 AM EDT Office Visit [address] [phone] Renetta Joshi PA-C [address] [place] [address] documented as of this encounter Visit Diagnoses Not on filedocumented in this encounter Care Teams Nurse Auditor Relationship Specialty Start Date End Date Renetta Joshi PA-C [address] [place] [phone] PCP - General Internal Medicine 03/09/23 documented as of this encounter
--- OUTSIDE RECORDS SUMMARY | 2025-02-12 09:35 | XMS_ITS | Encounter Summary ---
Author Organization [facility] Address [address] [place] [address] Care Team Providers Care Boat Engines Installer Name Role Phone Renetta Joshi PA-C Primary Care Provi richardson Encounter Details Date Type Department Care Team (Late st Contact Info) Description 03/26/2024 Scanned Document [facility] [address] [place] [address] Urology, Scan Social History Tobacco Use Types Packs/Day Years Used Date Smoking Tobacco: Some Days Cigars Smokeless Tobacco: Never Alcohol Use Standard Drinks/Week Comments Yes 0 (1 standard drink = 0.6 oz pur e alcohol) [facility] Utilities Answer Date Recorded In the past 12 months has [employer] electric, gas, oil, or water company threatened to shut off services in your home? No 03/02/2024 Social Connection and Isolation Panel Answer Date Recorded In a typical week, how many times do you talk on the phone with family, friends, or neighbors? More than three times a week 03/02/2024 Frequency of Social Gatherin gs with Friends and Family Not on file 03/02/2024 Attends Yazidism Services Not on file 03/02 Active Member [...] any time in the past 12 [facility], were you homeless or living in a penitentiary (including now)? No 03/02/2024 Education Answer Date Recorded What is the highest level of school you have completed or the highest degree you have received? Master's degree (e.g., MA, MS, Griselda, MEd, RAILROAD TRACK INSPECTOR, CAITLYN) 03/02/2024 Sex and Gender Information Value [...] Description 07/30/2025 8:00 AM EDT Office Visit [address] [place] [phone] Renetta Joshi PA-C [address] [place] [address] documented as of this encounter Visit Diagnoses Not on filedocumented in this encounter Care Teams Boat Engines Installer Relationship Specialty Start Date End Date Renetta Joshi PA-C [address] [place] [address] PCP - General Internal Medicine 03/09/23 documented as of this encounter
--- OUTSIDE RECORDS SUMMARY | 2025-02-12 09:35 | XMS_ITS | Encounter Summary ---
Author Organization [facility] Address [address] [place] [address] Care Team Providers Care Religion Department Chair Name Role Phone Renetta Joshi PA-C Primary Care Provi richardson Encounter Details Date Type Department Care Team (Late Contact Info) Description 09/13/2023 Scanned Document [facility] [address] [place] [address] Urology, Scan Social History Tobacco Use Types [...] Description 07/30/2025 8:00 AM EDT Office Visit [address] [place] [phone] Renetta Joshi PA-C [address] [place] [address] documented as of this encounter Visit Diagnoses Not on filedocumented in this encounter Care Teams Religion Department Chair Relationship Specialty Start Date End Date Renetta Joshi PA-C [address] [place] [address] PCP - General Internal Medicine 03/09/23 documented as of this encounter
--- OUTSIDE RECORDS SUMMARY | 2025-02-12 09:35 | XMS_ITS | Encounter Summary ---
Author Organization [facility] Address [address] [place] [address] Care Team Providers Care Entrepreneurial Finance Professor Name Role Phone Renetta Joshi PA-C Primary Care Provi richardson Encounter Details Date Type Department Care Team (Late Contact Info) Description 04/11/2023 Scanned Document [address] [phone] Primary Care, Scan Social History Tobacco Use [...] Description 07/30/2025 8:00 AM EDT Office Visit [address] [phone] Renetta Joshi PA-C [address] [place] [address] documented as of this encounter Visit Diagnoses Not on filedocumented in this encounter Care Teams Entrepreneurial Finance Professor Relationship Specialty Start Date End Date Renetta Joshi PA-C [address] [place] [address] PCP - General Internal Medicine 03/09/23 documented as of this encounter
--- OUTSIDE RECORDS SUMMARY | 2025-02-12 09:35 | XMS_ITS | Encounter Summary ---
Author Organization [facility] Address [address] [place] [address] Care Team Providers Care Asphalt Heater Tender Name Role Phone Renetta Joshi PA-C Primary Care Provi richardson Encounter Details Date Type Department Care Team (Late Contact Info) Description 11/01/2023 Scanned Document [facility] SLEEP MED SCAN Provider, Generic External Data Social History Tobacco Use Types Packs/Day Years [...] 07/30/2025 8:00 AM EDT Office Visit [address] [phone] Renetta Joshi PA-C [address] [place] [phone] documented as of this encounter Visit Diagnoses Not on filedocumented in this encounter Care Teams Asphalt Heater Tender Relationship Specialty Start Date End Date Renetta Joshi PA-C [address] [place] [phone] PCP - General Internal Medicine 03/09/23 documented as of this encounter
== END 2025-02-12 09:25 | disposition home or self-care (01) ==
LOC: HO.HSMS 08:53
PROVIDERS: PCP Internal Medicine; Visit Provider Psychiatry & Neurology Neurology
DX: G47.33 Obstructive sleep apnea (adult) (pediatric) (principal); G62.9 Polyneuropathy, unspecified
CPT/HCPCS: 99214

== ENCOUNTER → 2025-02-12 08:53 | Outpatient (BNVA) | payer MEDICARE, SELFPAY | PROVIDERS: PCP Internal Medicine; Visit Provider Psychiatry & Neurology Neurology | DX: G47.33 Obstructive sleep apnea (adult) (pediatric) (principal); Z99.89 Dependence on other enabling machines and devices; G62.9 Polyneuropathy, unspecified | CPT/HCPCS: 99212 ==